=== PATIENT | male | born 1955 | race Caucasian/White ===

== ENCOUNTER 2017-02-06 12:34 | Emergency (ER) | payer MEDICARE, MEDICAID ==
[2017-02-06] MEDS ORDERED: POTASSIUM CHLORIDE 10 MEQ TABLET.SA PO ONE (19:50)
[2017-02-06] MEDS ORDERED: POTASSI CL 20 MEQ/50 ML RIDER 40 MEQ/100 ML RTUPB IV ONE (19:51)
--- NOTE | 2017-02-06 20:23 | ER Document Report ---
ED General - General Chief Complaint: Nausea/Vomiting/Diarrhea Time Seen by Provider: 02/06/17 20:22 Notes: Patient is a 61-year-old male who comes emergency department for chief complaint of 3 days of vomiting, diarrhea, and reduced appetite. He states that the first day he had vomiting for several hours but this resolved, the next 2 days he had diarrhea. He states that this evening symptoms started to reduce but he states that he feels weak, he states he feels fatigued and out of breath when he walks around. Patient denies any fever, denies any symptoms while lying down. He denies syncope. Past medical history of hypertension, states he stopped taking medication some time ago but his blood pressure is always high. Patient states he feels hungry. TRAVEL OUTSIDE OF THE [place] IN LAST 30 DAYS: No - Related Data Allergies/Adverse Reactions: codeine [Codeine] Allergy (Verified 04/25/16 11:23) Penicillins Allergy (Verified 04/25/16 11:23) Past Medical History - General Information source: Patient - Social History Smoking Status: Former Smoker Frequency of alcohol use: Occasional Drug Abuse: None Lives with: Alone Family History: Reviewed & Not Pertinent - Past Medical History Cardiac Medical History: Reports: Hx Hypertension Pulmonary Medical History: Denies: Hx Tuberculosis Neurological Medical History: Denies: Hx Seizures Past Surgical History: Reports: Hx Orthopedic Surgery - knee, left hip - Immunizations Hx Diphtheria, Pertussis, Tetanus Vaccination: No Review of Systems - Review of Systems Constitutional: See HPI EENT: No symptoms reported Cardiovascular: See HPI Respiratory: See HPI Gastrointestinal: See HPI Genitourinary: No symptoms reported Male Genitourinary: No symptoms reported Musculoskeletal: No symptoms reported Skin: No symptoms reported Hematologic/Lymphatic: No symptoms reported Neurological/Psychological: No symptoms reported Physical Exam - Vital signs Vitals: Pulse Resp BP Pulse Ox 82 16 149/121 H 100 02/06/17 21:19 02/06/17 21:19 02/06/17 21:19 02/06/17 21:19 Interpretation: Normal - General General appearance: Appears well, Alert In distress: None - Patient alert and generally well-appearing although he appears somewhat weathered - HEENT Head: Normocephalic, Atraumatic Eyes: Normal Conjunctiva: Normal Extraocular movements intact: Yes Eyelashes: Normal Pupils: PERRL Sinus: Normal Nasal: Normal Mouth/Lips: Normal Mucous membranes: Dry - Dry tongue, lips, mucous membranes Pharynx: Normal Neck: Normal - Respiratory Respiratory status: No respiratory distress Chest status: Nontender Breath sounds: Normal Chest palpation: Normal - Cardiovascular Rhythm: Regular. No: Tachycardia Heart sounds: Normal auscultation, S1 appreciated, S2 appreciated Murmur: No - Abdominal Inspection: Normal Distension: No distension Bowel sounds: Normal Tenderness: Tender - Generalized abdominal tenderness, nonspecific, no rebound tenderness or guarding Organomegaly: No organomegaly - Back Back: Normal, Nontender. No: Tender - Extremities General upper extremity: Normal inspection, Nontender, Normal color, Normal ROM , Normal temperature General lower extremity: Normal inspection, Nontender, Normal color, Normal ROM , Normal temperature, Normal weight bearing. No: Ida's sign - Neurological Neuro grossly intact: Yes Cognition: Normal Orientation: AAOx4 [place] Coma Scale Eye Opening: Spontaneous [place] Coma Scale Verbal: Oriented [place] Coma Scale Motor: Obeys Commands Sonia Coma Scale Total: 15 Speech: Normal Motor strength normal: LUE, RUE, LLE, RLE Sensory: Normal - Psychological Associated symptoms: Normal affect, Normal mood - Skin Skin Temperature: Warm Skin Moisture: Dry Skin Color: Normal Course - Re-evaluation Re-evalutation: Patient generally well-appearing on exam. No leukocytosis, no fever, no significant tenderness on abdominal exam. Hypokalemia and 2.7, likely from the vomiting and diarrhea. Patient clinically also appears dehydrated. We will hydrate, replace potassium, reevaluate. Initial laboratory results delayed because of downtime with the system, attempted to redraw and trend troponins and this was also delayed but resulted and is unchanged. Some of laboratory results also on paper form only. Troponin is patient's baseline. No evidence of ACS on evaluation otherwise. Low suspicion of ACS or any pulmonary abnormality. Laboratory values again delayed trying to evaluate magnesium, eventually this was also obtained and shown to be only slightly low. Attempting to recheck potassium but discontinued hemolyze. After treatment patient smiling, states he feels much better, states his symptoms are completely gone he wants to go home. Chemistry finally resulted and shows that potassium has normalized, patient asking to go home, he does agree to follow-up with family care referral, after discussion patient will also be given hypertension medications, I discussed return precautions in depth, patient states understanding and agreement. - Vital Signs Vital signs: Temp Pulse Resp BP Pulse Ox 82 16 149/121 H 100 02/06/17 21:19 02/06/17 21:19 02/06/17 21:19 02/06/17 21:19 - Laboratory Result Diagrams: 02/06/17 16:10 02/07/17 05:36 Laboratory results interpreted by me: 02/07/17 02/07/17 02:20 05:36 Sodium 132.7 L BUN 23 H Calcium 8.2 L Urine Urobilinogen 4.0 H Discharge - Discharge Clinical Impression: Nausea vomiting and diarrhea, Hypokalemia, Uncontrolled hypertension Condition: Stable Disposition: HOME, SELF-CARE Additional Instructions: You have been treated for the electrolyte normality is caused by your vomiting and diarrhea. Based on the workup I suspect you had a viral syndrome. Begin lisinopril for uncontrolled blood pressure. Take Phenergan if needed for nausea or upset stomach. Follow-up with the referral to the clinic for reevaluation and management. Return to emergency department for any concerning or worsening symptoms Prescriptions: Lisinopril 20 mg PO DAILY #60 tablet Promethazine HCl [Phenergan 25 mg Tablet] 1 - 2 tab PO Q6H PRN #15 tablet PRN Reason: Referrals: [facility] [Provider Group] - 02/11/17
[2017-02-06 21:24] VITALS: BP 149/121
[2017-02-07] MEDS ORDERED: NORMAL SALINE 1000 ML 500 ML IV ONE (00:47)
[2017-02-07 02:55] LABS: APPEARANCE,URINE CLEAR; BILIRUBIN,URINE NEGATIVE (NEGATIVE); GLUCOSE, URINE NEGATIVE (NEGATIVE); KETONES,URINE NEGATIVE (NEGATIVE); LEUKOCYTE ESTERASE,URINE NEGATIVE (NEGATIVE); NITRITE,URINE NEGATIVE (NEGATIVE); PROTEIN,URINE NEGATIVE (NEGATIVE)
[2017-02-07 06:06] LABS: ANION GAP 7 (5-19); BLOOD UREA NITROGEN 23 mg/dL (7-20); CALCIUM 8.2 mg/dL (8.4-10.2); CARBON DIOXIDE 26 mmol/L (22-30); CHLORIDE 100 mmol/L (98-107); CREATININE RESULT 1.15 mg/dL (0.52-1.25); GLUCOSE 84 mg/dL (75-110); POTASSIUM 4.3 mmol/L (3.6-5.0); SODIUM 132.7 mmol/L (137-145)
[2017-02-07 10:31] LABS: HEMATOCRIT 38.5 % (37.9-51.0); HEMOGLOBIN 13.2 g/dL (13.5-17.0); HGB HCT DIFFERENCE 1.1; MEAN CORPUSCULAR HEMOGLOBIN 40.4 pg (27.0-33.4); MEAN CORPUSCULAR HGB CONC 34.3 g/dL (32.0-36.0); RED BLOOD COUNT 3.27 10^6/uL (4.35-5.55); RED CELL DISTRIBUTION WIDTH 16.3 % (11.5-14.0); WHITE BLOOD COUNT 3.8 10^3/uL (4.0-10.5)
[2017-02-07 10:32] LABS: MEAN CORPUSCULAR VOLUME 118 fl (80-97)
[2017-02-07 10:33] LABS: ANISOCYTOSIS 1+; BASOPHILS % (MANUAL) 0 % (0-2); EOSINOPHILS % (MANUAL) 1 % (0-6); LYMPHOCYTES % (MANUAL) 33 % (13-45); OVALOCYTES SLIGHT; POIKILOCYTOSIS SLIGHT; TEAR DROP CELLS SLIGHT; TOTAL CELLS COUNTED 100
--- NOTE | 2017-02-07 10:39 | EKG REPORT ---
SEVERITY:- ABNORMAL ECG - SINUS RHYTHM VENTRICULAR PREMATURE COMPLEX PROBABLE LEFT ATRIAL ABNORMALITY PROBABLE INFERIOR INFARCT, OLD : Confirmed by: Eusebia Cooper MD 07-Feb-2017 10:38:54
--- NOTE | 2017-02-07 10:39 | EKG REPORT ---
SEVERITY:- ABNORMAL ECG - SINUS RHYTHM VENTRICULAR PREMATURE COMPLEX PROBABLE INFERIOR INFARCT, OLD BORDERLINE PROLONGED QT INTERVAL : Confirmed by: Eusebia Cooper MD 07-Feb-2017 10:38:49
[2017-02-08 15:48] LABS: MAGNESIUM 1.4 mg/dL (1.6-2.3)
[2017-02-08 15:50] LABS: BLOOD UREA NITROGEN 24 mg/dL (7-20); CALCIUM 9.1 mg/dL (8.4-10.2); CREATININE RESULT 1.42 mg/dL (0.52-1.25); GLUCOSE 103 mg/dL (75-110)
[2017-02-08 15:51] LABS: CARBON DIOXIDE 29 mmol/L (22-30); CHLORIDE 93 mmol/L (98-107); POTASSIUM 2.7 mmol/L (3.6-5.0)
[2017-02-08 15:52] LABS: ALANINE AMINOTRANSFERASE 60 U/L (21-72); ALBUMIN 3.6 g/dL (3.5-5.0); ALKALINE PHOSPHATASE 111 U/L (38-126); ANION GAP 12 (5-19); ASPARTATE AMINO TRANSFERASE 158 U/L (17-59); BILIRUBIN,DIRECT 0.8 mg/dL (0.0-0.4); BILIRUBIN,TOTAL 2.1 mg/dL (0.2-1.3); SODIUM 133.8 mmol/L (137-145); TOTAL PROTEIN 6.7 g/dL (6.3-8.2)
[2017-02-08 15:54] LABS: CREATINE KINASE MB 1.86 ng/mL (<4.55); TROPONIN I 0.054 ng/mL
[2017-02-08 19:57] LABS: PATH REVIEW PATHOLOGIST REVIEWED
[2017-02-08 23:46] LABS: CREATINE KINASE 80 U/L (55-170); LIPASE 149.2 U/L (23-300)
== END 2017-02-06 20:25 | disposition other institution (70) ==
LOC: ER 12:34
DX: R11.2 Nausea with vomiting, unspecified (principal); R19.7 Diarrhea, unspecified; E87.6 Hypokalemia; I10 Essential (primary) hypertension; R53.1 Weakness; R53.83 Other fatigue; Z87.891 Personal history of nicotine dependence; Z88.6 Allergy status to analgesic agent; Z88.0 Allergy status to penicillin
CPT/HCPCS: 93005; 99285; 36415; 82553; 82550; 83690; 83735; 85025; 80048; 80053; 81001; 84484; 71020; 93010; J3480; A9270

== ENCOUNTER 2017-05-09 08:46 | Emergency (ER) | payer MEDICARE, MEDICAID ==
--- NOTE | 2017-05-09 09:45 | ER Document Report ---
ED General - General Mode of Arrival: Ambulatory Information source: Patient TRAVEL OUTSIDE OF THE [place] IN LAST 30 DAYS: No - HPI Onset: This morning Associated symptoms: Other - see above <ZANDRA DILL - Last Filed: 05/09/17 09:40> <LOY FELIX - Last Filed: 05/09/17 11:46> - General Chief Complaint: Low Blood Sugar Stated Complaint: FALL/DIZZY Time Seen by Provider: 05/09/17 09:05 Notes: Patient is a 61 year old male who presents to the ED with complaints of 3 separate falls. Patient states last night at approximately 1700 last night he fell after eating pizza. He fell a second time at 1900. Today he was going to [employer] to get bandaid and stepped up onto a curb falling a 3rd time. Patient states his right knee gave out during all of his falls but he denies any pain. Patient denies feeling dizzy or lightheaded. He has skin tears to his right and left elbow area and his left lower leg. Patient fell back in January 2016 causing a fractured hip. (ZANDRA DILL) - Related Data Allergies/Adverse Reactions: codeine [Codeine] Allergy (Verified 05/09/17 09:02) Penicillins Allergy (Verified 05/09/17 09:02) Past Medical History - General Information source: Patient - Social History Smoking Status: Current Every Day Smoker Frequency of alcohol use: Heavy Drug Abuse: None Family History: Reviewed & Not Pertinent - Past Medical History Cardiac Medical History: Reports: Hx Hypertension Pulmonary Medical History: Denies: Hx Tuberculosis Neurological Medical History: Denies: Hx Seizures Renal/ Medical History: Denies: Hx Peritoneal Dialysis Past Surgical History: Reports: Hx Orthopedic Surgery - knee, left hip - Immunizations Hx Diphtheria, Pertussis, Tetanus Vaccination: No <ZANDRA DILL - Last Filed: 05/09/17 09:40> Review of Systems - Review of Systems Constitutional: No symptoms reported EENT: No symptoms reported Cardiovascular: See HPI. denies: Dizziness, Lightheaded Respiratory: No symptoms reported Gastrointestinal: No symptoms reported Genitourinary: No symptoms reported Male Genitourinary: No symptoms reported Musculoskeletal: No symptoms reported Skin: See HPI, Other - skin tears Hematologic/Lymphatic: No symptoms reported Neurological/Psychological: No symptoms reported <ZANDRA DILL - Last Filed: 05/09/17 09:40> Physical Exam - General General appearance: Alert, Other - ETOH on breath, cachectic In distress: None - HEENT Head: Normocephalic, Atraumatic Eyes: Normal Extraocular movements intact: Yes Pupils: PERRL Mouth/Lips: Other - ETOH smell on breath - Respiratory Respiratory status: No respiratory distress Breath sounds: Rhonchi - Cardiovascular Rhythm: Regular Heart sounds: Normal auscultation Murmur: No - Abdominal Distension: No distension - Back Back: Normal - Extremities General upper extremity: Normal ROM, Other - see skin exam General lower extremity: Normal ROM, Normal temperature - skin is warm into feet , Other - see skin exam. No: Tender - to right leg - Neurological Neuro grossly intact: Yes - Psychological Associated symptoms: Normal affect, Normal mood - Skin Skin Temperature: Warm Skin Moisture: Dry Skin Color: Normal Skin irregularity: other - superficial skin tears where skin is missing on left elbow and posterior distal upper arm on the left, superficial skin tears where skin is missing on right elbow, skin tore off on left lateral leg <ZANDRA DILL - Last Filed: 05/09/17 09:40> - Vital signs Vitals: Pulse Resp BP Pulse Ox 74 20 169/97 H 100 05/09/17 08:53 05/09/17 08:53 05/09/17 08:53 05/09/17 08:53 Course <ZANDRA DILL - Last Filed: 05/09/17 09:40> - Laboratory Result Diagrams: 05/09/17 09:45 05/09/17 09:45 <LYO FELIX - Last Filed: 05/09/17 11:46> - Re-evaluation Re-evalutation: 05/09/17 11:13 The patient told the nurse he wanted to leave and did not want any further treatment. I went to see him and he is on his cell phone trying to find someone to come getting. He tells me he had someone get his car from the [employer] and taken back home because his dog was in the car. I explained to him that his low potassium and low sugar should probably be treated. When he wanted to know was low sugar the reason he fell, I informed him that his alcohol level was over 260 and he was extremely intoxicated and that is probably why he fell. He was argue the point stating he had one drink this morning and was not drunk. I told him he should have been picked up by the police and put in senior living and left there because he is a recalcitrant alcoholic putting the public at risk from his negligent behavior driving. He continued to protest claiming he had only had one drink. Due to Federal HIPPA laws, I do not think I can legally report this patient and the information that is protected by law pertaining to his behavior. I have attempted to get clarification of this in the past from workers compensation paralegal and have never been confidently assured that it is legal to report the patient like this. (LOY FELIX) - Vital Signs Vital signs: Temp Pulse Resp BP Pulse Ox 74 15 145/86 H 100 05/09/17 08:53 05/09/17 11:01 05/09/17 11:00 05/09/17 08:53 - Laboratory Laboratory results interpreted by me: 05/09/17 05/09/17 05/09/17 08:51 09:45 09:45 RBC 3.35 L Hgb 13.4 L MCV 115 H MCH 40.0 H RDW 18.4 H Plt Count 72 L Potassium 3.0 L* POC Glucose 131 H Direct Bilirubin 0.5 H AST 65 H Albumin 3.3 L Discharge <ZANDRA DILL - Last Filed: 05/09/17 09:40> <LOY FELIX - Last Filed: 05/09/17 11:46> - Discharge Clinical Impression: Frequent falls, Continuous chronic alcoholism, Hypokalemia Alcohol intoxication Qualifiers: Complication of substance-induced condition: uncomplicated Qualified Code(s): F10.920 - Alcohol use, unspecified with intoxication, uncomplicated Condition: Stable Disposition: AGAINST MEDICAL ADVICE Scribe Attestation: 05/09/17 11:46 I personally performed the services described in the documentation, reviewed and edited the documentation which was dictated to the scribe in my presence, and it accurately records my words and actions. (LOY FELIX) Scribe Documentation - Scribe Written by Scribe:: elkin Sibley, 05/09/2017, 0946 acting as scribe for :: Hayley <ZANDRA DILL - Last Filed: 05/09/17 09:40>
[2017-05-09 10:14] LABS: HEMATOCRIT 38.5 % (37.9-51.0); HEMOGLOBIN 13.4 g/dL (13.5-17.0); HGB HCT DIFFERENCE 1.7; MEAN CORPUSCULAR HGB CONC 34.7 g/dL (32.0-36.0); MEAN CORPUSCULAR VOLUME 115 fl (80-97); RED BLOOD COUNT 3.35 10^6/uL (4.35-5.55); RED CELL DISTRIBUTION WIDTH 18.4 % (11.5-14.0)
[2017-05-09 10:40] LABS: ALANINE AMINOTRANSFERASE 30 U/L (21-72); ALBUMIN 3.3 g/dL (3.5-5.0); ALCOHOL 264 mg/dL (NONE DETECTED); ALKALINE PHOSPHATASE 90 U/L (38-126); ANION GAP 10 (5-19); ASPARTATE AMINO TRANSFERASE 65 U/L (17-59); BASOPHILS % (MANUAL) 0 % (0-2); BILIRUBIN,DIRECT 0.5 mg/dL (0.0-0.4); BILIRUBIN,TOTAL 0.7 mg/dL (0.2-1.3); BLOOD UREA NITROGEN 8 mg/dL (7-20); CALCIUM 8.9 mg/dL (8.4-10.2); CARBON DIOXIDE 28 mmol/L (22-30); CHLORIDE 101 mmol/L (98-107); CREATININE RESULT 1.08 mg/dL (0.52-1.25); EOSINOPHILS % (MANUAL) 3 % (0-6); GLUCOSE 83 mg/dL (75-110); LYMPHOCYTES % (MANUAL) 32 % (13-45); MAGNESIUM 1.8 mg/dL (1.6-2.3); SODIUM 139.2 mmol/L (137-145); TOTAL CELLS COUNTED 100; TOTAL PROTEIN 6.5 g/dL (6.3-8.2)
[2017-05-09 10:44] LABS: TOXIC GRANULATION SLIGHT
[2017-05-09] MEDS ORDERED: DEXTROSE 5%-LACTATED RINGERS 1,000 ML IV ONE (11:04)
[2017-05-09] MEDS ORDERED: THIAMINE HCL INJ 200 MG/2 ML VIAL IV ONE (11:04)
[2017-05-09] MEDS ORDERED: POTASSIUM CHLORIDE 20 MEQ/15 ML UDCUP PO ONE (11:04)
[2017-05-09 11:17] VITALS: BP 145/86
== END 2017-05-09 11:17 | disposition left against medical advice (07) ==
LOC: ER 08:46
DX: F10.229 Alcohol dependence with intoxication, unspecified (principal); Y90.8 Blood alcohol level of 240 mg/100 ml or more; S51.012A Laceration without foreign body of left elbow, initial encounter; S51.011A Laceration without foreign body of right elbow, initial encounter; S81.812A Laceration without foreign body, left lower leg, initial encounter; W19.XXXA Unspecified fall, initial encounter; E87.6 Hypokalemia; R29.6 Repeated falls; Z87.81 Personal history of (healed) traumatic fracture; Z88.5 Allergy status to narcotic agent; Z88.0 Allergy status to penicillin; F17.200 Nicotine dependence, unspecified, uncomplicated
CPT/HCPCS: 36415; 80053; 80307; 82962; 83735; 85025; 99284

== ENCOUNTER 2018-04-03 14:15 | Emergency (ER) | payer MEDICARE, MEDICAID ==
[2018-04-03 14:23] VITALS: BP 110/83
[2018-04-03] MEDS ORDERED: NORMAL SALINE 1000 ML 1,000 ML IV ONE (15:03)
--- NOTE | 2018-04-03 15:07 | ER Document Report ---
ED General - General Chief Complaint: Weakness Stated Complaint: WEAKNESS IN LEGS Time Seen by Provider: 04/03/18 14:54 Mode of Arrival: Ambulatory Information source: Patient Notes: 62-year-old male presents emergency department with complaints of his right lower extremity giving out on him. Patient states that after he used the bathroom today he went to stand up and his right lower extremity gave out. He did fall. He denies any head injury or loss of consciousness. Patient states that he was having a difficult time getting up afterwards. One of his neighbors came by and assisted him. Patient was told to go to the emergency department for an evaluation. Patient has no complaints at this time. He denies any chest pain, shortness of breath, abdominal pain, nausea, vomiting, diarrhea, constipation, numbness, tingling, weakness. Patient states that he is able to ambulate. He denies any lower extremity pain. TRAVEL OUTSIDE OF THE [place] IN LAST 30 DAYS: No - HPI Onset: Just prior to arrival Onset/Duration: Sudden Quality of pain: No pain Severity: None Pain Level: Denies Associated symptoms: None Exacerbated by: Denies Relieved by: Denies Similar symptoms previously: Yes Recently seen / treated by doctor: No - Related Data Allergies/Adverse Reactions: codeine [Codeine] Allergy (Verified 04/03/18 15:05) Penicillins Allergy (Verified 04/03/18 15:05) Past Medical History - General Information source: Patient - Social History Smoking Status: Current Every Day Smoker Chew tobacco use (# tins/day): No Frequency of alcohol use: Heavy Drug Abuse: None Family History: Reviewed & Not Pertinent Patient has suicidal ideation: No Patient has homicidal ideation: No - Past Medical History Cardiac Medical History: Reports: Hx Hypertension Pulmonary Medical History: Denies: Hx Tuberculosis Neurological Medical History: Denies: Hx Seizures Renal/ Medical History: Denies: Hx Peritoneal Dialysis Past Surgical History: Reports: Hx Abdominal Surgery - hernia, Hx Orthopedic Surgery - knee, left hip - Immunizations Hx Diphtheria, Pertussis, Tetanus Vaccination: No Review of Systems - Review of Systems Constitutional: No symptoms reported EENT: No symptoms reported Cardiovascular: No symptoms reported Respiratory: No symptoms reported Gastrointestinal: No symptoms reported Genitourinary: No symptoms reported Male Genitourinary: No symptoms reported Skin: No symptoms reported Hematologic/Lymphatic: No symptoms reported Neurological/Psychological: No symptoms reported -: Yes All other systems reviewed and negative Physical Exam - Vital signs Vitals: Temp Pulse Resp BP Pulse Ox 98.4 F 96 18 110/83 94 04/03/18 14:21 04/03/18 14:21 04/03/18 14:21 04/03/18 14:21 04/03/18 14:21 Interpretation: Normal - Notes Notes: PHYSICAL EXAMINATION: GENERAL: Well-appearing, well-nourished and in no acute distress. HEAD: Atraumatic, normocephalic. EYES: Pupils equal round and reactive to light, extraocular movements intact, sclera anicteric, conjunctiva are normal. ENT: Nares patent, oropharynx clear without exudates. Moist mucous membranes. NECK: Normal range of motion, supple without lymphadenopathy LUNGS: Breath sounds clear to auscultation bilaterally and equal. No wheezes rales or rhonchi. HEART: Regular rate and rhythm without murmurs ABDOMEN: Soft, nontender, nondistended abdomen. No guarding, no rebound. No masses appreciated. Musculoskeletal: Normal range of motion, no pitting or edema. No cyanosis. NEUROLOGICAL: Cranial nerves grossly intact. Normal speech, normal gait. Normal sensory, motor exams PSYCH: Normal mood, normal affect. SKIN: Warm, Dry, normal turgor, no rashes or lesions noted. Course - Re-evaluation Re-evalutation: 04/03/18 15:21 Labs ordered. Patient wants to leave AGAINST MEDICAL ADVICE. Patient understands the risks of leaving AGAINST MEDICAL ADVICE. He is mentally competent to make decisions. - Vital Signs Vital signs: Temp Pulse Resp BP Pulse Ox 98.4 F 96 18 110/83 94 04/03/18 14:21 04/03/18 14:21 04/03/18 14:21 04/03/18 14:21 04/03/18 14:21 Discharge - Discharge Clinical Impression: Weakness Condition: Stable Disposition: AGAINST MEDICAL ADVICE
== END 2018-04-03 15:28 | disposition left against medical advice (07) ==
LOC: ER 14:15
DX: R53.1 Weakness (principal); I10 Essential (primary) hypertension; F17.200 Nicotine dependence, unspecified, uncomplicated; Z88.0 Allergy status to penicillin; Z88.5 Allergy status to narcotic agent; Z53.20 Procedure and treatment not carried out because of patient's decision for unspecified reasons
CPT/HCPCS: 99285

== ENCOUNTER 2019-03-13 21:35 | Emergency (ER) | payer MEDICARE, MEDICAID ==
[2019-03-13] MEDS ORDERED: ONDANSETRON HCL INJ/PF 4 MG/2 ML SDV IV ONE (22:13)
--- NOTE | 2019-03-13 22:38 | ER Document Report ---
ED General - General Chief Complaint: Fall Stated Complaint: HIP PAIN Time Seen by Provider: 03/13/19 21:52 Cannot obtain history due to: Intoxicated Notes: Patient is a 63-year-old male with a past medical history of chronic alcohol abuse, chronic malnutrition, presents by EMS with right lower extremity pain. Patient reports that he was walking through his house, his right leg gave out and he abruptly sat down on the couch scraping his arm on the side of the chair. The patient adamantly denies a fall although EMS does report that the patient was found on the ground. The patient is reporting a severe, throbbing, constant pain to his right hip. Pain was abrupt in onset and has been constant since that time. Any attempt at moving the hip worsens the pain. Nothing improves the pain. States that he has history of a left hip fracture but has never had an injury to the right hip in the past. Denies any injury to any other location. TRAVEL OUTSIDE OF THE [place] IN LAST 30 DAYS: No - Related Data Allergies/Adverse Reactions: codeine [Codeine] Allergy (Verified 04/03/18 15:05) Penicillins Allergy (Verified 04/03/18 15:05) Past Medical History - General Information source: Patient - Social History Smoking Status: Current Every Day Smoker Frequency of alcohol use: Heavy Drug Abuse: None Lives with: Alone Family History: Reviewed & Not Pertinent - Past Medical History Cardiac Medical History: Reports: Hx Hypertension Pulmonary Medical History: Denies: Hx Tuberculosis Neurological Medical History: Denies: Hx Seizures Renal/ Medical History: Denies: Hx Peritoneal Dialysis Past Surgical History: Reports: Hx Abdominal Surgery - hernia, Hx Orthopedic Surgery - knee, left hip - Immunizations Hx Diphtheria, Pertussis, Tetanus Vaccination: No Review of Systems - Review of Systems Notes: Constitutional: Negative for fever. HENT: Negative for sore throat. Eyes: Negative for visual changes. Cardiovascular: Negative for chest pain. Respiratory: Negative for shortness of breath. Gastrointestinal: Positive for nausea Genitourinary: Negative for dysuria. Musculoskeletal: Positive for right hip pain Skin: Negative for rash. Neurological: Negative for headaches, weakness or numbness. 10 point ROS negative except as marked above and in HPI. Physical Exam - Vital signs Vitals: Resp Pulse Ox 13 99 03/13/19 21:41 03/13/19 21:41 Interpretation: Normal Notes: PHYSICAL EXAMINATION: GENERAL: Frail, emaciated man who appears older than stated age HEAD: Atraumatic, normocephalic. EYES: Pupils equal round and reactive to light, extraocular movements intact, sclera anicteric, conjunctiva are normal. ENT: nares patent, oropharynx clear without exudates. Moderately dry mucous membranes. NECK: Normal range of motion, supple without lymphadenopathy LUNGS: Breath sounds clear to auscultation bilaterally and equal. No wheezes rales or rhonchi. HEART: Regular rate and rhythm without murmurs ABDOMEN: Soft, nontender, normoactive bowel sounds. No guarding, no rebound. No masses appreciated. EXTREMITIES: Unable to range right hip. Exquisite pain on palpation of the area. No other areas of extremity findings. NEUROLOGICAL: No focal neurological deficits. PSYCH: Mildly intoxicated SKIN: Warm, Dry, normal turgor, scattered skin avulsions over the right forearm Course - Re-evaluation Re-evalutation: 03/13/19 22:37 Patient presents with acute onset of right hip pain. Patient states that he was walking, his legs simply gave out on him and he fell back into a chair. He is clear to state me that he did not fall onto the ground although EMS states that he was found down on the ground. Patient is a chronic alcoholic, has a history of left hip fracture in the past status post repair. His right hip does have diffuse swelling and obvious pain on palpation. X-ray does show a proximal femur fracture. Pain control will be provided. Patient also has skin abrasions over his right forearm although declined x-rays of the forearm and elbow. He did not hit his head or neck tonight. Labs are pending. He will require hospitalization for surgical fixation. 03/14/19 01:47 Unfortunately do not have orthopedic surgery senior formulation scientist. Patient has been accepted by Dr. Celestin the hospitalist on-call at [facility]. Patient's labs do not demonstrate findings consistent with macrocytic anemia likely secondary to alcohol consumption. Thiamine and folate have been initiated. Maintenance fluids have been initiated. Patient understands that he will require transfer. - Vital Signs Vital signs: Temp Pulse Resp BP Pulse Ox 97.6 F 11 L 127/96 H 98 03/13/19 22:13 03/14/19 01:00 03/13/19 22:00 03/14/19 01:00 - Laboratory Result Diagrams: 03/13/19 23:05 03/13/19 23:05 Laboratory results interpreted by me: 03/13/19 03/13/19 23:05 23:05 RBC 2.59 L Hgb 10.0 L Hct 28.4 L MCV 110 H MCH 38.4 H RDW 16.1 H Plt Count 79 L Sodium 136.2 L Potassium 3.3 L Creatinine 1.36 H Est GFR (Non-Af Amer) 53 L Calcium 8.2 L Total Protein 6.0 L Albumin 3.0 L - Diagnostic Test Radiology reviewed: Image reviewed, Reports reviewed Radiology results interpreted by me: 03/14/19 01:48 Right hip x-ray: Intertrochanteric fracture on right Discharge - Discharge Clinical Impression: Renal insufficiency, Alcohol abuse, Skin tear of right upper extremity, Macrocytic anemia Fracture, intertrochanteric, right femur Qualifiers: Encounter type: initial encounter Fracture type: closed Fracture alignment: nondisplaced Qualified Code(s): S72.144A - Nondisplaced intertrochanteric fracture of right femur, initial encounter for closed fracture Malnutrition Qualifiers: Malnutrition type: unspecified type Qualified Code(s): E46 - Unspecified protein-calorie malnutrition Condition: Fair Disposition: [facility]ICAL ACCESS HOSPITAL
--- NOTE | 2019-03-13 22:42 | RADIOLOGY REPORT (SQ) ---
EXAM DESCRIPTION: XR CHEST 1 VIEW COMPLETED DATE/TME: 03/13/2019 00:00 CLINICAL HISTORY: 63 years, Male, PRE OP COMPARISON: Multiple priors, most recent from 01/24/2016 NUMBER OF VIEWS: One TECHNIQUE: Single frontal view of the chest was obtained LIMITATIONS: None. FINDINGS: Cardiac and mediastinal contours are stable. Patchy right apical opacity is noted along with right apical cap. Left lung is overall clear. No pleural effusion or pneumothorax. Multiple old healed left-sided rib fracture deformities are noted. Focal nodular opacity projecting over the left posterior fifth rib likely indicates artifact related to the first costochondral junction. IMPRESSION: Patchy right apical opacity with right apical cap. Consider atelectasis or pneumonia to include aspiration. The right apical cap could indicate scarring. Recommend short interval follow-up to clearing (4-6 weeks). If this finding persists, then further assessment with CT would be recommended. copyright 2010 [employer]- All Rights Reserved
[2019-03-13] MEDS: MORPHINE SULFATE 10 MG/ML INJ IV PRN (22:48)
--- NOTE | 2019-03-13 22:54 | RADIOLOGY REPORT (SQ) ---
EXAM DESCRIPTION: XR HIP 2 OR MORE VIEWS COMPLETED DATE/TME: 03/13/2019 21:52 CLINICAL HISTORY: 63 years Male, fall, pain COMPARISON: CT abdomen pelvis February 13, 2015 Findings: Comminuted intertrochanteric fracture of the right proximal femur with 1.0 cm anterior displacement and moderate medial angulation. Intramedullary sara fixation of the left proximal femur. Bony demineralization. Atherosclerotic vascular disease. IMPRESSION: Acute fracture of the right proximal femur.
[2019-03-13 23:24] LABS: ABSOLUTE BASOPHILS # (AUTO) 0.1 10^3/uL (0.0-0.2); ABSOLUTE LYMPHOCYTES (AUTO) 0.9 10^3/uL (0.5-4.7); ABSOLUTE MONOCYTES (AUTO) 0.4 10^3/uL (0.1-1.4); ABSOLUTE NEUT (AUTO) 3.4 10^3/uL (1.7-8.2); BASOPHILS % (AUTO) 1.1 % (0-2); EOSINOPHILS % (AUTO) 0.4 % (0-6); HEMATOCRIT 28.4 % (37.9-51.0); LYMPHOCYTES % (AUTO) 18.6 % (13-45); MEAN CORPUSCULAR HEMOGLOBIN 38.4 pg (27.0-33.4); MEAN CORPUSCULAR VOLUME 110 fl (80-97); MONOCYTES % (AUTO) 7.8 % (3-13); RED BLOOD COUNT 2.59 10^6/uL (4.35-5.55); RED CELL DISTRIBUTION WIDTH 16.1 % (11.5-14.0); SEGMENTED NEUTROPHILS % (AUTO) 72.1 % (42-78); TOTAL CELLS COUNTED % (AUTO) 100 %; WHITE BLOOD COUNT 4.8 10^3/uL (4.0-10.5)
[2019-03-13 23:41] LABS: ALANINE AMINOTRANSFERASE 25 U/L (21-72); ALKALINE PHOSPHATASE 85 U/L (38-126); ANION GAP 8 (5-19); ASPARTATE AMINO TRANSFERASE 35 U/L (17-59); BILIRUBIN,DIRECT 0.4 mg/dL (0.0-0.4); BILIRUBIN,TOTAL 0.7 mg/dL (0.2-1.3); BLOOD UREA NITROGEN 16 mg/dL (7-20); CALCIUM 8.2 mg/dL (8.4-10.2); CARBON DIOXIDE 22 mmol/L (22-30); CHLORIDE 106 mmol/L (98-107); GLUCOSE 93 mg/dL (75-110); POTASSIUM 3.3 mmol/L (3.6-5.0); SODIUM 136.2 mmol/L (137-145)
[2019-03-13 23:43] LABS: PLATELET COUNT 79 10^3/uL (150-450)
[2019-03-14] MEDS ORDERED: RINGERS SOLUTION,LACTATED 1,000 ML IV ONE (01:39)
[2019-03-14] MEDS: MORPHINE SULFATE 10 MG/ML INJ IV PRN ×5 (01:45→11:06)
[2019-03-14] MEDS ORDERED: THIAMINE HCL INJ 200 MG/2 ML VIAL ONE (02:03)
[2019-03-14] MEDS ORDERED: FOLIC ACID INJ 5 MG/1 ML 10 ML VIAL ONE (02:03)
[2019-03-14 02:07] LABS: ALCOHOL 174 mg/dL (NONE DETECTED)
[2019-03-14] MEDS: THIAMINE HCL 100 MG, FOLIC ACID 1 MG in NORMAL SALINE 250 ML IV SCH ×2 (02:36→10:05)
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
[2019-03-14] MEDS ORDERED: MORPHINE SULFATE 10 MG/ML INJ IV ONE (11:21)
[2019-03-14] MEDS ORDERED: FENTANYL CITRATE INJ/PF 100 MCG/2 ML AMPUL IV ONE (17:26)
[2019-03-14] MEDS ORDERED: NORMAL SALINE 1000 ML 1,000 ML IV ONE (17:27)
[2019-03-14] MEDS ORDERED: KETOROLAC TROMETHAMINE INJ/PF 30 MG/1 ML SDV IV ONE (19:26)
[2019-03-14 19:51] VITALS: BP 107/68
== END 2019-03-14 20:00 | disposition short-term general hospital (02) ==
LOC: ER 21:35
DX: S72.144A Nondisplaced intertrochanteric fracture of right femur, initial encounter for closed fracture (principal); S41.111A Laceration without foreign body of right upper arm, initial encounter; D53.9 Nutritional anemia, unspecified; E46 Unspecified protein-calorie malnutrition; N28.9 Disorder of kidney and ureter, unspecified; F10.10 Alcohol abuse, uncomplicated; M25.551 Pain in right hip; X58.XXXA Exposure to other specified factors, initial encounter; Y92.009 Unspecified place in unspecified non-institutional (private) residence as the place of occurrence of the external cause; F17.200 Nicotine dependence, unspecified, uncomplicated; I10 Essential (primary) hypertension
CPT/HCPCS: 99285; 96361; 96375; 96365; 96366; 36415; 80307; 85025; 80053; 71045; 73502; J3010; J3490; J1885; J2270 ×2; J3411; J2405; J7030; J7050; J7120

== ENCOUNTER 2019-12-09 20:14 | Observation (INO) | payer MEDICARE, MEDICAID ==
--- NOTE | 2019-12-09 20:30 | ER Document Report ---
ED General - General Stated Complaint: CHEST WALL PAIN Time Seen by Provider: 12/09/19 20:23 Primary Care Provider: NYDIA JAIME MD [NO LOCAL MD] - Follow up as needed Notes: 64-year-old male with history of debility COPD, hypertension and hypothyroidism presents with chest pain. Left-sided chest wall worse with breathing and palpation onset 3 days ago. Seen by primary care which diagnosed chest wall pain and was discharged but is now here because the pain got better. Denies shortness of breath cough fever or travel. Denies leg swelling. Takes atenolol no extra dosing. Does not seem to be on a thyroid medicine. Per EMS was bra [employer]. TRAVEL OUTSIDE OF THE [place] IN LAST 30 DAYS: No - Related Data Allergies/Adverse Reactions: codeine [Codeine] Allergy (Verified 04/03/18 15:05) Penicillins Allergy (Verified 04/03/18 15:05) Past Medical History - Social History Smoking Status: Current Every Day Smoker Smoking Education Provided: Yes - Smoking cessation certain smoking cessation Family History: Reviewed & Not Pertinent - Past Medical History Cardiac Medical History: Reports: Hx Hypertension Pulmonary Medical History: Denies: Hx Tuberculosis Neurological Medical History: Denies: Hx Seizures Renal/ Medical History: Denies: Hx Peritoneal Dialysis Past Surgical History: Reports: Hx Abdominal Surgery - hernia, Hx Orthopedic Surgery - knee, left hip - Immunizations Hx Diphtheria, Pertussis, Tetanus Vaccination: No Review of Systems - Review of Systems Notes: REVIEW OF SYSTEMS GEN: Denies fever, chills, weight loss ENT: Denies sore throat, nasal discharge, ear pain EYES: Denies blurry vision, eye pain, discharge CV: Chest pain RESP: Denies cough, shortness of breath, wheezing GI: Denies abdominal pain, nausea, vomiting, diarrhea MSK: Denies joint pain/swelling, edema, SKIN: Denies rash, skin lesions LYMPH: Denies swollen glands/lymph nodes NEURO: Denies headache, focal weakness or numbness, dizziness PSYCH: Denies depression, suicidal or homicidal ideation PHYSICAL EXAMINATION General: Quite thin and pale chronically ill-appearing Hed Head: Atraumatic, normocephalic ENT: Mouth normal, oropharynx moist, no exudates or tonsillar enlargement Eyes: Conjunctiva normal, pupils equal, lids normal Neck: No JVD, supple, no guarding CVS: Chest wall tenderness left side Resp: No resp distress, equal and normal breath sounds bilaterally GI: Nondistended, soft, no tenderness to palpation, no rebound or guarding Ext: No deformities, no edema, normal range of motion in upper and lower ext Back: No CVA or midline TTP Skin: No rash, warm Lymphatic: No lymphadeopathy noted Neuro: Awake, alert. Face symmetric. GCS 15. Physical Exam - Vital signs Vitals: Resp 13 12/09/19 20:24 Course - Re-evaluation Re-evalutation: 12/09/19 insert review Insert review 12/09/19 22:51 REVIEW OF SYSTEMS GEN: Denies fever, chills, weight loss ENT: Denies sore throat, nasal discharge, ear pain EYES: Denies blurry vision, eye pain, discharge CV: Chest pain RESP: Denies cough, shortness of breath, wheezing GI: Denies abdominal pain, nausea, vomiting, diarrhea MSK: Denies joint pain/swelling, edema, SKIN: Denies rash, skin lesions LYMPH: Denies swollen glands/lymph nodes NEURO: Denies headache, focal weakness or numbness, dizziness PSYCH: Denies depression, suicidal or homicidal ideation PHYSICAL EXAMINATION General: No acute distress, well-nourished Head: Atraumatic, normocephalic ENT: Mouth normal, oropharynx moist, no exudates or tonsillar enlargement Eyes: Conjunctiva normal, pupils equal, lids normal Neck: No JVD, supple, no guarding CVS: Normal rate, regular rhythm, no murmurs Resp: No resp distress, equal and normal breath sounds bilaterally, left chest tenderness GI: Nondistended, soft, no tenderness to palpation, no rebound or guarding Ext: No deformities, no edema, normal range of motion in upper and lower ext Back: No CVA or midline TTP Skin: No rash, warm Lymphatic: No lymphadeopathy noted Neuro: Awake, alert. Face symmetric. GCS 15. 12/09/19 22:52 Patient presents with chronic illness and reproducible chest pain which is likely unrelated to his bradycardia. Bradycardia seems relatively asymptomatic he did have a fall here today. He is in sinus bradycardia with first-degree block and is on a beta-idris. Will check electrolytes and placed on pacer just in case. Patient is well-perfused with borderline blood pressures which improved on their own with no intervention. Heart rate never dropped below 40 block did not increase repeat EKG was unchanged. His troponin is negative his potassium is slightly low. We will replete and admit for observation for potassium/telemetry off beta-idris. Do not think he needs an urgent pacemaker cardiology consultation. Discussed with Dr. Uribe who is admitted to [facility]. - Vital Signs Vital signs: Temp Pulse Resp BP Pulse Ox 15 114/72 99 12/09/19 22:01 12/09/19 22:01 12/09/19 22:01 - Laboratory Result Diagrams: 12/09/19 20:25 12/09/19 20:25 Laboratory results interpreted by me: 12/09/19 12/09/19 12/09/19 20:25 20:25 20:25 RBC 4.04 L MCV 105 H MCH 35.7 H RDW 14.4 H Plt Count 109 L Lymph % (Auto) 57.2 H Eos % (Auto) 6.4 H Baso % (Auto) 2.5 H Absolute Neuts (auto) 1.1 L Seg Neutrophils % 26.7 L Potassium 3.2 L TSH 4.85 H - EKG Interpretation by Me EKG shows normal: Sinus rhythm Rate: Bradycardia Heart block present: 1st Degree Critical Care Note - Critical Care Note Total time excluding time spent on procedures (mins): 31 Comments: The above patient is critically ill. Not including procedures, but including direct re-evaluations, speaking with patient and/or consultants, interpreting results, and documenting, I spent the total amount of minute listed listed above on critical care time Discharge - Discharge Clinical Impression: Bradycardia Condition: Fair Disposition: ADMITTED OBSERVATION Admitting Provider: Rony (Hospitalist) Unit Admitted: Telemetry Referrals: NYDIA JAIME MD [NO LOCAL MD] - Follow up as needed
[2019-12-09 20:48] LABS: ABSOLUTE BASOPHILS # (AUTO) 0.1 10^3/uL (0.0-0.2); ABSOLUTE EOSINOPHILS # (AUTO) 0.3 10^3/uL (0.0-0.6); ABSOLUTE LYMPHOCYTES (AUTO) 2.4 10^3/uL (0.5-4.7); ABSOLUTE MONOCYTES (AUTO) 0.3 10^3/uL (0.1-1.4); ABSOLUTE NEUT (AUTO) 1.1 10^3/uL (1.7-8.2); BASOPHILS % (AUTO) 2.5 % (0-2); EOSINOPHILS % (AUTO) 6.4 % (0-6); HEMATOCRIT 42.3 % (37.9-51.0); HEMOGLOBIN 14.4 g/dL (13.5-17.0); LYMPHOCYTES % (AUTO) 57.2 % (13-45); MEAN CORPUSCULAR HEMOGLOBIN 35.7 pg (27.0-33.4); MEAN CORPUSCULAR VOLUME 105 fl (80-97); MONOCYTES % (AUTO) 7.2 % (3-13); PLATELET COUNT 109 10^3/uL (150-450); RED BLOOD COUNT 4.04 10^6/uL (4.35-5.55); RED CELL DISTRIBUTION WIDTH 14.4 % (11.5-14.0); SEGMENTED NEUTROPHILS % (AUTO) 26.7 % (42-78); TOTAL CELLS COUNTED % (AUTO) 100 %; WHITE BLOOD COUNT 4.3 10^3/uL (4.0-10.5)
[2019-12-09 21:03] LABS: ANION GAP 7 (5-19); BLOOD UREA NITROGEN 11 mg/dL (7-20); CALCIUM 8.6 mg/dL (8.4-10.2); CARBON DIOXIDE 28 mmol/L (22-30); CHLORIDE 103 mmol/L (98-107); GLUCOSE 85 mg/dL (75-110); POTASSIUM 3.2 mmol/L (3.6-5.0)
[2019-12-09] MEDS: POTASSI CL 20 MEQ/50 ML RIDER 20 MEQ/50 ML RTUPB IV SCH (23:49)
[2019-12-10] MEDS ORDERED: MORPHINE SULFATE 10 MG/ML INJ IV PRN ×3 (00:25)
[2019-12-10] MEDS ORDERED: PROMETHAZINE HCL INJ 25 MG/1 ML VIAL IV PRN (00:25)
[2019-12-10] MEDS ORDERED: DIAZEPAM INJ 10 MG/2 ML DISP.SYRIN IV PRN (00:25)
[2019-12-10] MEDS ORDERED: GUAIFENESIN SYRP 200 MG/10 ML UDC PO PRN (00:25)
[2019-12-10] MEDS ORDERED: IBUPROFEN 800 MG TABLET PO PRN (00:25)
[2019-12-10] MEDS ORDERED: ACETAMINOPHEN 325 MG TABLET PO PRN (00:25)
[2019-12-10] MEDS ORDERED: MAGNESIUM HYDROXIDE SUSP 30 ML UDCUP PO PRN (00:25)
[2019-12-10] MEDS ORDERED: LEVALBUTEROL HCL NEB 0.63 MG/3 ML AMPUL NEB PRN (00:25)
[2019-12-10] MEDS ORDERED: NICOTINE 21 MG/24 HR PATCH.TD24 TD PRN (00:25)
[2019-12-10] MEDS ORDERED: CHLORPROMAZINE HCL INJ 25 MG/1 ML AMPULE IV PRN (00:25)
[2019-12-10] MEDS ORDERED: MAG HYDROX/AL HYDROX/SIMETH SUSP 30 ML UDCUP PO PRN (00:25)
[2019-12-10] MEDS: DIAZEPAM 5 MG TABLET PO SCH ×3 (02:18→09:40)
[2019-12-10] MEDS: POTASSI CL 20 MEQ/50 ML RIDER 20 MEQ/50 ML RTUPB IV SCH (02:18)
[2019-12-10 03:28] LABS: CHOLESTEROL 111.85 mg/dL (0-200); CREATINE KINASE 40 U/L (55-170); TRIGLYCERIDES 72 mg/dL (<150)
[2019-12-10 03:49] LABS: CREATINE KINASE MB 1.46 ng/mL (<4.55); TROPONIN I 0.03 ng/mL
[2019-12-10 03:53] LABS: DIRECT LDL 43 mg/dL (<100)
[2019-12-10] MEDS ORDERED: HEPARIN SOD (PORCINE) 5,000 UNIT/ML 1 ML VIAL SUBCUT SCH (06:00)
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
[2019-12-10] MEDS ORDERED: DOCUSATE SODIUM 100 MG CAPSULE PO SCH (10:00)
[2019-12-10 10:36] LABS: CREATINE KINASE MB 1.32 ng/mL (<4.55); TROPONIN I 0.017 ng/mL
[2019-12-10 12:05] VITALS: BP 151/88
--- NOTE | 2019-12-10 15:55 | EKG REPORT ---
SEVERITY:- ABNORMAL ECG - SINUS BRADYCARDIA INFERIOR INFARCT, OLD : Confirmed by: Eusebia Cooper MD 10-Dec-2019 15:54:40
== END 2019-12-10 12:43 | disposition home or self-care (01) ==
LOC: ER 20:14 → EH 23:23 → 4N 12-10 00:15
PROVIDERS: ADMIT Emergency Medicine; ATTEND Hospitalist
DX: R00.1 Bradycardia, unspecified (principal); E87.6 Hypokalemia; I11.0 Hypertensive heart disease with heart failure; I50.42 Chronic combined systolic (congestive) and diastolic (congestive) heart failure; F10.20 Alcohol dependence, uncomplicated; F17.200 Nicotine dependence, unspecified, uncomplicated; J44.9 Chronic obstructive pulmonary disease, unspecified; E03.9 Hypothyroidism, unspecified; E78.5 Hyperlipidemia, unspecified; I44.0 Atrioventricular block, first degree; I25.10 Atherosclerotic heart disease of native coronary artery without angina pectoris; Z86.718 Personal history of other venous thrombosis and embolism; Z87.81 Personal history of (healed) traumatic fracture; Z82.49 Family history of ischemic heart disease and other diseases of the circulatory system; Z79.899 Other long term (current) drug therapy
CPT/HCPCS: 93005; 99291; 96365; 36415; 82553; 82550; 83735; 84443 ×2; 85025; 80048; 84484 ×2; 84481; 80061; 93010; G0378; A9270 ×2; J3490; J3480 ×2

== ENCOUNTER 2020-03-12 20:16 | Inpatient (IN) | payer MEDICARE, MEDICAID ==
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
[2020-03-12 20:50] LABS: ABSOLUTE BASOPHILS # (AUTO) 0.1 10^3/uL (0.0-0.2); ABSOLUTE EOSINOPHILS # (AUTO) 0.2 10^3/uL (0.0-0.6); ABSOLUTE LYMPHOCYTES (AUTO) 2.5 10^3/uL (0.5-4.7); ABSOLUTE MONOCYTES (AUTO) 0.3 10^3/uL (0.1-1.4); ABSOLUTE NEUT (AUTO) 1.3 10^3/uL (1.7-8.2); BASOPHILS % (AUTO) 1.3 % (0-2); EOSINOPHILS % (AUTO) 4.2 % (0-6); HEMATOCRIT 41.5 % (37.9-51.0); HEMOGLOBIN 14.7 g/dL (13.5-17.0); LYMPHOCYTES % (AUTO) 58.4 % (13-45); MEAN CORPUSCULAR HEMOGLOBIN 37.8 pg (27.0-33.4); MEAN CORPUSCULAR HGB CONC 35.5 g/dL (32.0-36.0); MEAN CORPUSCULAR VOLUME 107 fl (80-97); RED CELL DISTRIBUTION WIDTH 14.5 % (11.5-14.0); SEGMENTED NEUTROPHILS % (AUTO) 29.1 % (42-78); TOTAL CELLS COUNTED % (AUTO) 100 %; WHITE BLOOD COUNT 4.3 10^3/uL (4.0-10.5)
[2020-03-12 21:02] LABS: PLATELET COUNT 57 10^3/uL (150-450)
[2020-03-12 21:16] LABS: ALBUMIN 4.1 g/dL (3.5-5.0); ALKALINE PHOSPHATASE 112 U/L (38-126); ANION GAP 13 (5-19); ASPARTATE AMINO TRANSFERASE 164 U/L (17-59); BILIRUBIN,DIRECT 0.3 mg/dL (0.0-0.4); BILIRUBIN,TOTAL 0.9 mg/dL (0.2-1.3); BLOOD UREA NITROGEN 12 mg/dL (7-20); CALCIUM 9.1 mg/dL (8.4-10.2); CARBON DIOXIDE 23 mmol/L (22-30); CHLORIDE 92 mmol/L (98-107); GLUCOSE 110 mg/dL (75-110); POTASSIUM 3.1 mmol/L (3.6-5.0); TOTAL PROTEIN 7.4 g/dL (6.3-8.2)
--- NOTE | 2020-03-12 21:18 | RADIOLOGY REPORT (SQ) ---
EXAM DESCRIPTION: XR PELVIS 1 VIEW COMPLETED DATE/TME: 03/12/2020 20:24 CLINICAL HISTORY: 64 years, Male, fall, leg pain COMPARISON: None. NUMBER OF VIEWS: TECHNIQUE: LIMITATIONS: None. FINDINGS: No acute fracture or dislocation. There are old bilateral hip fractures, with metallic fixation in place. IMPRESSION: No acute fracture or dislocation. copyright 2010 [employer]- All Rights Reserved
--- NOTE | 2020-03-12 21:21 | RADIOLOGY REPORT (SQ) ---
EXAM DESCRIPTION: XR FEMUR BILATERAL, 8 views COMPLETED DATE/TME: 03/12/2020 20:24 CLINICAL HISTORY: 64 years, Male, fall, leg pain COMPARISON: None. NUMBER OF VIEWS: TECHNIQUE: LIMITATIONS: None. FINDINGS: No acute fracture or dislocation. There are old fractures of the hips bilaterally, with metallic fixation in place. IMPRESSION: No acute fracture or dislocation. copyright 2010 [employer]- All Rights Reserved
[2020-03-12] MEDS ORDERED: NORMAL SALINE 500 ML IV ONE (21:53)
[2020-03-12] MEDS ORDERED: POTASSIUM CHLORIDE 10 MEQ TABLET.ER PO ONE (21:53)
[2020-03-12] MEDS ORDERED: POTASSI CL 20 MEQ/50 ML RIDER 20 MEQ/50 ML RTUPB IV ONE (21:54)
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
[2020-03-13] MEDS: MAGNESIUM SULFATE/D5W 1 GM/100 ML RTUPB IV SCH ×2 (00:58→02:05)
[2020-03-13 01:20] LABS: APPEARANCE,URINE CLEAR; BILIRUBIN,URINE NEGATIVE (NEGATIVE); COLOR,URINE YELLOW; GLUCOSE, URINE NEGATIVE (NEGATIVE); KETONES,URINE NEGATIVE (NEGATIVE); LEUKOCYTE ESTERASE,URINE NEGATIVE (NEGATIVE); NITRITE,URINE NEGATIVE (NEGATIVE); PROTEIN,URINE NEGATIVE (NEGATIVE); URINE SPECIFIC GRAVITY 1.004; UROBILINOGEN,URINE NEGATIVE mg/dL (<2.0)
[2020-03-13] MEDS ORDERED: GLUCAGON,HUMAN RECOMB 1 MG INJ IV ONE (01:30)
[2020-03-13] MEDS ORDERED: ONDANSETRON HCL INJ/PF 4 MG/2 ML SDV IV ONE (02:30)
[2020-03-13] MEDS ORDERED: MELATONIN 5 MG TABLET PO PRN (03:20)
[2020-03-13] MEDS ORDERED: CHLORPROMAZINE HCL INJ 25 MG/1 ML AMPULE IV PRN (03:20)
[2020-03-13] MEDS ORDERED: DIAZEPAM INJ 10 MG/2 ML DISP.SYRIN IV PRN (03:20)
[2020-03-13] MEDS ORDERED: LEVALBUTEROL HCL NEB 0.63 MG/3 ML AMPUL NEB PRN (03:20)
[2020-03-13] MEDS ORDERED: MORPHINE SULFATE 10 MG/ML INJ IV PRN ×4 (03:20→03:47)
[2020-03-13] MEDS ORDERED: PROMETHAZINE HCL INJ 25 MG/1 ML VIAL IV PRN (03:20)
[2020-03-13] MEDS ORDERED: MAGNESIUM HYDROXIDE SUSP 30 ML UDCUP PO PRN (03:20)
[2020-03-13] MEDS ORDERED: GUAIFENESIN SYRP 200 MG/10 ML UDC PO PRN (03:20)
[2020-03-13] MEDS ORDERED: MAG HYDROX/AL HYDROX/SIMETH SUSP 30 ML UDCUP PO PRN (03:20)
[2020-03-13] MEDS ORDERED: ACETAMINOPHEN 325 MG TABLET PO PRN (03:20)
[2020-03-13] MEDS ORDERED: HYDRALAZINE HCL INJ/PF 20 MG/1 ML SDV IV PRN (03:20)
[2020-03-13] MEDS ORDERED: NICOTINE 21 MG/24 HR PATCH.TD24 TD PRN (03:20)
[2020-03-13] MEDS ORDERED: RINGERS SOLUTION,LACTATED 1,000 ML IV PRN (03:24)
[2020-03-13] MEDS: DIAZEPAM 5 MG TABLET PO SCH ×2 (05:09→08:10)
[2020-03-13 06:38] LABS: HEMATOCRIT 40.2 % (37.9-51.0); MEAN CORPUSCULAR HEMOGLOBIN 37.2 pg (27.0-33.4); MEAN CORPUSCULAR HGB CONC 34.7 g/dL (32.0-36.0); MEAN CORPUSCULAR VOLUME 107 fl (80-97); RED BLOOD COUNT 3.75 10^6/uL (4.35-5.55); RED CELL DISTRIBUTION WIDTH 14.5 % (11.5-14.0); WHITE BLOOD COUNT 4.2 10^3/uL (4.0-10.5)
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
[2020-03-13 06:58] LABS: ANION GAP 12 (5-19); BLOOD UREA NITROGEN 11 mg/dL (7-20); CALCIUM 8.7 mg/dL (8.4-10.2); CARBON DIOXIDE 19 mmol/L (22-30); CHLORIDE 99 mmol/L (98-107); GLUCOSE 77 mg/dL (75-110); POTASSIUM 3.4 mmol/L (3.6-5.0)
[2020-03-13 07:00] LABS: PLATELET COUNT 42 10^3/uL (150-450)
[2020-03-13] MEDS ORDERED: LORAZEPAM INJ 2 MG/1 ML VIAL IV PRN ×3 (08:05)
[2020-03-13] MEDS ORDERED: HYDROCODONE/ACETAMINOPHEN 5-325 MG TABLET PO PRN (08:08)
[2020-03-13] MEDS ORDERED: POTASSIUM CHLORIDE 10 MEQ TABLET.ER PO ONE (08:30)
[2020-03-13] MEDS: DOCUSATE SODIUM 100 MG CAPSULE PO SCH ×2 (09:33→17:01)
[2020-03-13] MEDS: FAMOTIDINE 20 MG TABLET PO SCH ×2 (09:33→21:59)
[2020-03-13] MEDS ORDERED: NORMAL SALINE 1000 ML 1,000 ML IV PRN (10:04)
[2020-03-13] MEDS ORDERED: NORMAL SALINE 1000 ML 500 ML IV ONE (10:04)
--- NOTE | 2020-03-13 10:07 | EKG REPORT ---
SEVERITY:- ABNORMAL ECG - SINUS BRADYCARDIA INFERIOR INFARCT, OLD : Confirmed by: Otilio Irvin MD 13-Mar-2020 10:07:26
[2020-03-13 14:07] LABS: ANION GAP 9 (5-19); BLOOD UREA NITROGEN 10 mg/dL (7-20); CALCIUM 8.7 mg/dL (8.4-10.2); CARBON DIOXIDE 22 mmol/L (22-30); CHLORIDE 100 mmol/L (98-107); GLUCOSE 97 mg/dL (75-110); POTASSIUM 4.2 mmol/L (3.6-5.0)
--- NOTE | 2020-03-13 14:39 | PDOC PROGRESS REPORT ---
Subjective Progress Note for:: 03/13/20 Subjective:: The patient was seen on morning rounds. He was found resting in bed, comfortably, eating his breakfast. He is A&O x4. He reports continued bilateral hip discomfort. His primary complaint today is lack of sleep overnight. He denies fever, chest pain, palpitations, dyspnea, orthopnea, cough, abdominal pain, nausea vomiting diarrhea. We discussed potential disposition. Patient adamantly declines SNF placement for short-term rehab. He is agreeable to home health nursing and physical therapy. He tells me that he fully intends to resume his typical alcohol intake upon discharge; claims to drink 3 Vodka-Cokes daily (will not quantify the amount of vodka in each). He is offered assistance in inpatient and/or outpatient alcohol rehab services; he declines these as well. He has no other questions or concerns today. Reason For Visit: FALL,ACUTE ALCOHOL INTOXICATION,ALCOHOL DEPENDENCE Physical Exam Vital Signs: Temp Pulse Resp BP Pulse Ox 97.8 F 48 L 20 129/78 H 97 03/13/20 11:28 03/13/20 11:28 03/13/20 11:28 03/13/20 11:28 03/13/20 11:28 Intake & Output 03/12/20 03/13/20 03/14/20 06:59 06:59 06:59 Intake Total 750 Balance 750 Weight 52.2 kg General appearance: PRESENT: no acute distress, disheveled, thin, well-developed Head exam: PRESENT: atraumatic, normocephalic Eye exam: PRESENT: conjunctiva pink, EOMI, PERRLA. ABSENT: scleral icterus Mouth exam: PRESENT: moist, tongue midline Teeth exam: PRESENT: poor dentation Respiratory exam: PRESENT: clear to auscultation krystal, symmetrical, unlabored. ABSENT: rales, rhonchi, wheezes Cardiovascular exam: PRESENT: RRR. ABSENT: diastolic murmur, rubs, systolic murmur Extremities exam: PRESENT: full ROM. ABSENT: calf tenderness, clubbing, pedal edema Musculoskeletal exam: PRESENT: ambulatory - ~100' w/ FWW Neurological exam: PRESENT: alert, awake, oriented to person, oriented to place, oriented to time, oriented to situation, CN II-XII grossly intact. ABSENT: motor sensory deficit Psychiatric exam: PRESENT: appropriate affect, normal mood. ABSENT: homicidal ideation, suicidal ideation Skin exam: PRESENT: dry, intact, warm. ABSENT: cyanosis, rash Results Laboratory Results: 03/13/20 05:59 03/13/20 13:40 03/12/20 03/12/20 03/12/20 20:30 20:30 20:30 WBC 4.3 RBC 3.90 L Hgb 14.7 Hct 41.5 MCV 107 H MCH 37.8 H MCHC 35.5 RDW 14.5 H Plt Count 57 L Seg Neutrophils % 29.1 L Sodium 128.4 L Potassium 3.1 L Chloride 92 L Carbon Dioxide 23 Anion Gap 13 BUN 12 Creatinine 1.31 H Est GFR ( Amer) > 60 Glucose 110 Calcium 9.1 Magnesium 1.5 L Total Bilirubin 0.9 AST 164 H Alkaline Phosphatase 112 Total Protein 7.4 Albumin 4.1 Urine Color Urine Appearance Urine pH Ur Specific [place] Urine Protein Urine Glucose (UA) Urine Ketones Urine Blood Urine Nitrite Ur Leukocyte Esterase Urine WBC (Auto) Urine RBC (Auto) 03/13/20 03/13/20 03/13/20 00:34 05:59 05:59 WBC 4.2 RBC 3.75 L Hgb 14.0 Hct 40.2 MCV 107 H MCH 37.2 H MCHC 34.7 RDW 14.5 H Plt Count 42 L Seg Neutrophils % Sodium 129.8 L Potassium 3.4 L Chloride 99 Carbon Dioxide 19 L Anion Gap 12 BUN 11 Creatinine 1.10 Est GFR ( Amer) > 60 Glucose 77 Calcium 8.7 Magnesium 2.2 Total Bilirubin AST Alkaline Phosphatase Total Protein Albumin Urine Color YELLOW Urine Appearance CLEAR Urine pH 6.0 Ur Specific [place] 1.004 Urine Protein NEGATIVE Urine Glucose (UA) NEGATIVE Urine Ketones NEGATIVE Urine Blood SMALL H Urine Nitrite NEGATIVE Ur Leukocyte Esterase NEGATIVE Urine WBC (Auto) 1 Urine RBC (Auto) 0 03/13/20 13:40 WBC RBC Hgb Hct MCV MCH MCHC RDW Plt Count Seg Neutrophils % Sodium 130.5 L Potassium 4.2 Chloride 100 Carbon Dioxide 22 Anion Gap 9 BUN 10 Creatinine 1.22 Est GFR ( Amer) > 60 Glucose 97 Calcium 8.7 Magnesium Total Bilirubin AST Alkaline Phosphatase Total Protein Albumin Urine Color Urine Appearance Urine pH Ur Specific [place] Urine Protein Urine Glucose (UA) Urine Ketones Urine Blood Urine Nitrite Ur Leukocyte Esterase Urine WBC (Auto) Urine RBC (Auto) 03/12/20 03/12/20 20:30 20:30 Creatine Kinase 72 Troponin I 0.033 Impressions: Femur X-Ray 03/12/20 20:24 IMPRESSION: No acute fracture or dislocation. copyright 2010 [employer]- All Rights Reserved Pelvis X-Ray 03/12/20 20:24 IMPRESSION: No acute fracture or dislocation. copyright 2010 [employer]- All Rights Reserved Assessment and Plan - Diagnosis (1) Hyponatremia Is this a current diagnosis for this admission?: Yes Plan: Trending up. Na 128.4-> 129.8-> 130.5 Continue gentle IVF Follow up chemistry. (2) Hypokalemia Is this a current diagnosis for this admission?: Yes Plan: Replete. Follow up chemistry (3) Alcohol use disorder, severe, dependence Is this a current diagnosis for this admission?: Yes Plan: Serum ETOH 276 Cessation encouraged. Patient declines rehab services. Monitor for withdrawal; CIWA with sliding scale Ativan. Daily multivitamin, thiamine, folic acid supplementation. Fall, seizure precautions. (4) Hypertension Qualifiers: Hypertension type: essential hypertension Qualified Code(s): I10 - Essential (primary) hypertension Is this a current diagnosis for this admission?: Yes Plan: Resume low-dose Losartan. Cardiac diet. (5) COPD (chronic obstructive pulmonary disease) Qualifiers: COPD type: unspecified COPD Qualified Code(s): J44.9 - Chronic obstructive pulmonary disease, unspecified Is this a current diagnosis for this admission?: Yes Plan: Stable and without exacerbation. As needed nebulizer treatments Encouraged pulmonary toilet. (6) Hyperlipidemia Qualifiers: Hyperlipidemia type: unspecified Qualified Code(s): E78.5 - Hyperlipidemia, unspecified Is this a current diagnosis for this admission?: Yes Plan: Cardiac diet. (7) Systolic and diastolic CHF, chronic Is this a current diagnosis for this admission?: Yes Plan: Stable and without exacerbation at this time Continue home medication regimen Cardiac diet. Daily weights. (8) Hip pain Is this a current diagnosis for this admission?: Yes Plan: Bilateral hip pain. Xray imagining is negative; no indications for CT. Ambulated ~100 feet today. Analgesics as needed. Avoid sedating medications r/t alcohol use/abuse. - Time Time Spent with patient: 25-34 minutes Medications reviewed and adjusted accordingly: Yes Anticipated discharge: Home Within: within 24 hours
[2020-03-13] MEDS: HEPARIN SOD (PORCINE) 5,000 UNIT/ML 1 ML VIAL SUBCUT SCH (17:57)
[2020-03-14 06:40] LABS: HEMATOCRIT 32.9 % (37.9-51.0); MEAN CORPUSCULAR HEMOGLOBIN 37.7 pg (27.0-33.4); MEAN CORPUSCULAR HGB CONC 34.9 g/dL (32.0-36.0); MEAN CORPUSCULAR VOLUME 108 fl (80-97); RED BLOOD COUNT 3.04 10^6/uL (4.35-5.55); RED CELL DISTRIBUTION WIDTH 14.5 % (11.5-14.0)
[2020-03-14 07:05] LABS: ANION GAP 5 (5-19); BLOOD UREA NITROGEN 12 mg/dL (7-20); CALCIUM 8.5 mg/dL (8.4-10.2); CARBON DIOXIDE 21 mmol/L (22-30); CHLORIDE 106 mmol/L (98-107); GLUCOSE 72 mg/dL (75-110); POTASSIUM 4.7 mmol/L (3.6-5.0)
[2020-03-14 07:36] LABS: HEMOGLOBIN 11.5 g/dL (13.5-17.0); WHITE BLOOD COUNT 1.9 10^3/uL (4.0-10.5)
[2020-03-14 07:37] LABS: PLATELET COUNT 24 10^3/uL (150-450)
[2020-03-14] MEDS: FAMOTIDINE 20 MG TABLET PO SCH (09:10)
[2020-03-14] MEDS ORDERED: LOPERAMIDE HCL 2 MG CAPSULE PO PRN (09:15)
[2020-03-14] MEDS: DOCUSATE SODIUM 100 MG CAPSULE PO SCH (09:28)
[2020-03-14] MEDS ORDERED: LOSARTAN POTASSIUM 25 MG TABLET PO SCH (10:00)
[2020-03-14] MEDS ORDERED: THIAMINE HCL 100 MG TABLET PO SCH (10:00)
[2020-03-14] MEDS ORDERED: MULTIVITAMIN TABLET PO SCH (10:00)
[2020-03-14] MEDS ORDERED: FOLIC ACID 1 MG TABLET PO SCH (10:00)
[2020-03-14 12:19] VITALS: BP 157/86
--- NOTE | 2020-03-14 13:43 | Left Against Medical Advice ---
Against Medical Advice Admission Date/Time: 03/13/20 03:10 Primary Care Provider: CHENTE TURNER Date of Patient Emigration: 03/14/20 - Diagnosis: (1) Hyponatremia Is this a current diagnosis for this admission?: Yes (2) Hypokalemia Is this a current diagnosis for this admission?: Yes (3) Alcohol use disorder, severe, dependence Is this a current diagnosis for this admission?: Yes (4) Hypertension Is this a current diagnosis for this admission?: Yes (5) COPD (chronic obstructive pulmonary disease) Is this a current diagnosis for this admission?: Yes (6) Hyperlipidemia Is this a current diagnosis for this admission?: Yes (7) Systolic and diastolic CHF, chronic Is this a current diagnosis for this admission?: Yes (8) Hip pain Is this a current diagnosis for this admission?: Yes - Summary: Summary: Please see Admission and Progress Notes as well. JOHN WALKER is a 64 M, who LEFT AGAINST MEDICAL ADVICE. The Patient was admitted on 03/13/20 03:10. The patient was admitted to the medical floor on continuous cardiac telemetry. He was provided IV fluids with a liberalized sodium diet. Electrolytes were monitored and replaced as indicated. Serum EtOH on admission was 276. I had a discussion with the patient regarding his alcohol intake. He was unreceptive to my concern about the amount of drinking he undergoes. He minimized his alcohol intake to 3 small drinks daily. He adamantly declined interest in inpatient or outpatient rehabilitation; stated that he intended to return home and resume his normal alcohol consumption. He was placed on a daily multivitamin, thiamine, and folic acid supplement. The patient's hip pain was evaluated with x-ray imaging; no acute findings. Physical therapy was consulted; he was able to ambulate approximately 100 feet with front wheel walker and minimal assistance. The patient was noted to have pancytopenia with, most notably, worsening thrombocytopenia (PLT 57-> 24). Patient was informed that I intended to obtain hematology consultation. Unfortunately, the patient elected to leave AGAINST MEDICAL ADVICE prior to Dr. Santizo being able to evaluate the patient and make further recommendations. Most likely, the pancytopenia is likely related to his chronic alcohol use, and as mentioned above, the patient is unreceptive to alcohol cessation at this time.
[2020-03-14 15:51] LABS: PATH REVIEW PATHOLOGIST REVIEWED
== END 2020-03-14 12:38 | disposition left against medical advice (07) | DRG 894 ==
LOC: ER 20:16 → OBSVTOIN 03-13 03:10 → UNDOADMOB 03-13 03:10 → EH 03-13 03:10 → 4S 03-13 04:45
PROVIDERS: ADMIT Emergency Medicine; ATTEND Registered Nurse
PROC: HZ2ZZZZ Detoxification Services for Substance Abuse Treatment (ICD-10-PCS; principal; 2020-03-13)
DX: F10.221 Alcohol dependence with intoxication delirium (principal); E87.1 Hypo-osmolality and hyponatremia; I50.42 Chronic combined systolic (congestive) and diastolic (congestive) heart failure; D61.818 Other pancytopenia; W19.XXXA Unspecified fall, initial encounter; Y90.8 Blood alcohol level of 240 mg/100 ml or more; E87.6 Hypokalemia; J44.9 Chronic obstructive pulmonary disease, unspecified; E78.5 Hyperlipidemia, unspecified; I11.0 Hypertensive heart disease with heart failure; W05.0XXA Fall from non-moving wheelchair, initial encounter; I25.10 Atherosclerotic heart disease of native coronary artery without angina pectoris; E03.9 Hypothyroidism, unspecified; R00.1 Bradycardia, unspecified; M25.552 Pain in left hip; M25.551 Pain in right hip; E78.00 Pure hypercholesterolemia, unspecified; F17.210 Nicotine dependence, cigarettes, uncomplicated; E83.42 Hypomagnesemia; Z60.2 Problems related to living alone; Z86.718 Personal history of other venous thrombosis and embolism; Z79.899 Other long term (current) drug therapy; Z88.6 Allergy status to analgesic agent; Z88.0 Allergy status to penicillin; Z91.81 History of falling
CPT/HCPCS: 36415; 72170; 73552; 80048; 80053; 80307; 81001; 82550; 83735; 84484; 85025; 85027; 93005; 93010; 96365; 96366; 96367; 96375; 99285; J1610; J2405; J3475; J3480; J3490; J7030; J7040

== ENCOUNTER 2020-03-15 21:21 | Inpatient (IN) | payer MEDICARE, MEDICAID ==
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
--- NOTE | 2020-03-15 22:49 | RADIOLOGY REPORT (SQ) ---
EXAM DESCRIPTION: XR PELVIS 1-2 VIEWS COMPLETED DATE/TME: 03/15/2020 22:15 CLINICAL HISTORY: 64 years, Male, fall at home, pain walking, h/o surgery COMPARISON: 03/12/2020 pelvis NUMBER OF VIEWS: 1 TECHNIQUE: AP pelvis LIMITATIONS: None. FINDINGS: Osteopenia. Stable postsurgical change. Lucency with surrounding sclerosis associated with the intertrochanteric region of the right femur may reflect incompletely healed fracture. An acute fracture is not excluded, correlate with site of pain. New from the prior exam are lucencies associated with the right and left inferior pubic rami, worrisome for nondisplaced fractures. Consider follow-up with CT. IMPRESSION: Lucencies overlying the right and left inferior pubic rami may in part reflect artifact from overlying soft tissues, however nondisplaced acute fracture deformities are not excluded. Possible incompletely healed versus acute nondisplaced fracture of the intertrochanteric region of the right femur. Consider follow-up with CT. copyright 2010 [employer]- All Rights Reserved
--- NOTE | 2020-03-15 22:56 | RADIOLOGY REPORT (SQ) ---
EXAM DESCRIPTION: XR FEMUR 2 VIEWS COMPLETED DATE/TME: 03/15/2020 22:15 CLINICAL HISTORY: 64 years, Male, fall at home, pain walking, h/o surgery COMPARISON: 03/12/2020 AP pelvis. 03/13/2019 right hip. NUMBER OF VIEWS: 4 TECHNIQUE: 4 views of the right femur LIMITATIONS: None. FINDINGS: Intramedullary sara with gamma nail. Osteopenia. Fixation screw of the proximal femoral diaphysis. Lucency extends through the intertrochanteric region of the femur. This could reflect acute fracture versus incompletely healed fracture. No other evidence for acute fracture or dislocation. IMPRESSION: Questionable acute versus incompletely healed fracture of the intertrochanteric region. copyright 2010 [employer]- All Rights Reserved
--- NOTE | 2020-03-15 22:57 | RADIOLOGY REPORT (SQ) ---
EXAM DESCRIPTION: XR LUMBAR SPINE ANTEROPOSTERIOR, LATERAL, AND OBLIQUES COMPLETED DATE/TME: 03/15/2020 22:15 CLINICAL HISTORY: 64 years, Male, fall at home, pain walking, h/o surgery COMPARISON: None. NUMBER OF VIEWS: 5 TECHNIQUE: 5 view lumbar spine LIMITATIONS: None. FINDINGS: 5 lumbar type vertebral bodies. Osteopenia. Vertebral body height and alignment is preserved. Minor endplate degenerative changes with facet arthropathy throughout the lumbar spine. Vascular calcifications. Minor degenerative changes of sacroiliac joints. IMPRESSION: No radiographic evidence for acute abnormality of the lumbar spine copyright 2010 [employer]- All Rights Reserved
[2020-03-15 23:15] LABS: ABSOLUTE EOSINOPHILS # (AUTO) 0.1 10^3/uL (0.0-0.6); ABSOLUTE LYMPHOCYTES (AUTO) 0.9 10^3/uL (0.5-4.7); ABSOLUTE MONOCYTES (AUTO) 0.3 10^3/uL (0.1-1.4); ABSOLUTE NEUT (AUTO) 1.2 10^3/uL (1.7-8.2); BASOPHILS % (AUTO) 1.5 % (0-2); EOSINOPHILS % (AUTO) 3.7 % (0-6); HEMATOCRIT 35.5 % (37.9-51.0); HEMOGLOBIN 12.4 g/dL (13.5-17.0); LYMPHOCYTES % (AUTO) 35.8 % (13-45); MEAN CORPUSCULAR HEMOGLOBIN 37.5 pg (27.0-33.4); MEAN CORPUSCULAR HGB CONC 34.9 g/dL (32.0-36.0); MEAN CORPUSCULAR VOLUME 108 fl (80-97); MONOCYTES % (AUTO) 11.4 % (3-13); RED CELL DISTRIBUTION WIDTH 14.5 % (11.5-14.0); SEGMENTED NEUTROPHILS % (AUTO) 47.6 % (42-78); TOTAL CELLS COUNTED % (AUTO) 100 %; WHITE BLOOD COUNT 2.6 10^3/uL (4.0-10.5)
[2020-03-15 23:22] LABS: ALBUMIN 3.6 g/dL (3.5-5.0); ALKALINE PHOSPHATASE 97 U/L (38-126); ANION GAP 7 (5-19); ASPARTATE AMINO TRANSFERASE 118 U/L (17-59); BILIRUBIN,DIRECT 0.2 mg/dL (0.0-0.4); BILIRUBIN,TOTAL 0.7 mg/dL (0.2-1.3); BLOOD UREA NITROGEN 12 mg/dL (7-20); CALCIUM 8.9 mg/dL (8.4-10.2); CARBON DIOXIDE 26 mmol/L (22-30); CHLORIDE 102 mmol/L (98-107); GLUCOSE 85 mg/dL (75-110); POTASSIUM 3.6 mmol/L (3.6-5.0); TOTAL PROTEIN 6.7 g/dL (6.3-8.2)
[2020-03-15 23:35] LABS: PLATELET COUNT 37 10^3/uL (150-450)
--- NOTE | 2020-03-16 00:27 | RADIOLOGY REPORT (SQ) ---
EXAM DESCRIPTION: CT PELVIS WITHOUT IV CONTRAST COMPLETED DATE/TME: 03/15/2020 23:25 CLINICAL HISTORY: 64 years, Male, fall, possible incomplete fx hip and pelvis COMPARISON: Plain films 03/15/2020 TECHNIQUE: 502 Images stored on PACS. All CT scanners at this facility use dose modulation, iterative reconstruction, and/or weight based dosing when appropriate to reduce radiation dose to as low as reasonably achievable (ALARA). [facility]: Dose Right [facility]: CareDose [facility]: Dose Right [facility]: Teradose 4D [facility]: [employer] LIMITATIONS: None. FINDINGS: Limited evaluation of intrapelvic structures shows sigmoid diverticulosis. No free fluid in the pelvis. Postsurgical changes with bilateral hip arthroplasties. Comminuted fracture deformity of the right inferior pubic ramus, with extension of fracture lines to the right ischium posteriorly. There is also a nondisplaced fracture of the left inferior pubic ramus. Fracture line through the intertrochanteric region of the right femur with minimal areas of sclerosis likely reflects incompletely healed fracture. However, there is a superimposed acute fracture associated with the proximal right femur with small avulsion off of the lesser trochanter. Acute fracture also extends to the greater trochanter, with lucency along the lateral margin of the intramedullary sara at this site. IMPRESSION: Comminuted fracture deformity of the right inferior pubic ramus with extension of fracture lines to the right ischium posteriorly. Acute fracture of the right femur, with avulsed fragment of the lesser trochanter and fracture line also extending to the greater trochanter. Incompletely healed fracture lines are also present. Nondisplaced fracture of the left inferior pubic ramus. TECHNICAL DOCUMENTATION: Quality ID # 436: Final reports with documentation of one or more dose reduction techniques (e.g., Automated exposure control, adjustment of the mA and/or kV according to patient size, use of iterative reconstruction technique) copyright 2011 [employer]- All Rights Reserved
[2020-03-16] MEDS ORDERED: OXYCODONE-ACETAMINOPHEN 5-325 MG TABLET PO ONE (01:21)
[2020-03-16] MEDS ORDERED: PROMETHAZINE HCL INJ 25 MG/1 ML VIAL IV PRN (01:43)
[2020-03-16] MEDS ORDERED: DEXTROSE 5%-LACTATED RINGERS 1,000 ML IV PRN (01:43)
[2020-03-16] MEDS ORDERED: LEVALBUTEROL HCL NEB 0.63 MG/3 ML AMPUL NEB PRN (01:43)
[2020-03-16] MEDS ORDERED: CHLORPROMAZINE HCL INJ 25 MG/1 ML AMPULE IV PRN (01:50)
[2020-03-16] MEDS ORDERED: HYDRALAZINE HCL INJ/PF 20 MG/1 ML SDV IV PRN (01:50)
[2020-03-16] MEDS ORDERED: ACETAMINOPHEN 650 MG SUPP.RECT PR PRN (01:50)
[2020-03-16] MEDS ORDERED: NICOTINE 21 MG/24 HR PATCH.TD24 TD PRN (01:50)
[2020-03-16] MEDS ORDERED: MORPHINE SULFATE 10 MG/ML INJ IV PRN ×4 (01:50→02:01)
[2020-03-16] MEDS ORDERED: NORMAL SALINE 1000 ML 1,000 ML with POTASSIUM CHLORIDE 20 MEQ, MAGNESIUM SULFATE 8 MEQ,... IV ONE ×5 (02:15)
[2020-03-16] MEDS ORDERED: FAMOTIDINE INJ/PF 20 MG/2 ML SDV IV ONE (02:15)
[2020-03-16] MEDS: DIAZEPAM INJ 10 MG/2 ML DISP.SYRIN IV SCH ×4 (02:59→11:10)
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
[2020-03-16 05:46] LABS: HEMATOCRIT 31.8 % (37.9-51.0); HEMOGLOBIN 11.2 g/dL (13.5-17.0); MEAN CORPUSCULAR HGB CONC 35.1 g/dL (32.0-36.0); MEAN CORPUSCULAR VOLUME 108 fl (80-97); RED BLOOD COUNT 2.95 10^6/uL (4.35-5.55); RED CELL DISTRIBUTION WIDTH 14.7 % (11.5-14.0); WHITE BLOOD COUNT 2.1 10^3/uL (4.0-10.5)
[2020-03-16 05:54] LABS: ANION GAP 10 (5-19); BLOOD UREA NITROGEN 12 mg/dL (7-20); CALCIUM 8.3 mg/dL (8.4-10.2); CARBON DIOXIDE 21 mmol/L (22-30); CHLORIDE 104 mmol/L (98-107); GLUCOSE 117 mg/dL (75-110); POTASSIUM 3.5 mmol/L (3.6-5.0)
[2020-03-16] MEDS ORDERED: HEPARIN SOD (PORCINE) 5,000 UNIT/ML 1 ML VIAL SUBCUT SCH (06:00)
[2020-03-16 06:16] LABS: PLATELET COUNT 29 10^3/uL (150-450)
[2020-03-16] MEDS: LEVALBUTEROL HCL NEB 1.25 MG/3 ML AMPUL NEB SCH ×2 (08:58→16:12)
[2020-03-16] MEDS: NORMAL SALINE 1000 ML 1,000 ML with POTASSIUM CHLORIDE 20 MEQ, MAGNESIUM SULFATE 8 MEQ,... IV SCH ×5 (08:58)
[2020-03-16] MEDS ORDERED: NORMAL SALINE 250 ML IV PRN ×2 (09:25)
[2020-03-16 09:44] LABS: INTERNATIONAL RATION (INR) 1.19; PROTHROMBIN TIME 15.2 SEC (11.4-15.4)
[2020-03-16] MEDS ORDERED: FAMOTIDINE INJ/PF 20 MG/2 ML SDV IV SCH ×2 (10:00)
[2020-03-16] MEDS ORDERED: OXYCODONE-ACETAMINOPHEN 5-325 MG TABLET PO PRN (11:04)
[2020-03-16] MEDS: DIAZEPAM 5 MG TABLET PO SCH ×3 (12:33→23:54)
[2020-03-16] MEDS: OXYCODONE-ACETAMINOPHEN 5-325 MG TABLET PO PRN ×2 (12:33→18:25)
--- NOTE | 2020-03-16 15:06 | Progress Note ---
Provider Note Provider Note: Patient is a 64-year-old male with past medical history of CHF, CAD, DVT, hypertension, hyperlipidemia, COPD (not on home O2), hypothyroidism, alcohol and tobacco dependency with continuous use who was admitted early this morning by the oracle database manager for fracture of the left and right inferior pubic ramus and closed intertrochanteric fracture of the right femur related to mechanical fall at home. Notably, patient had a serum alcohol level of 183. It is also worth noting that the patient left AGAINST MEDICAL ADVICE 2 days ago after admission for generalized weakness, multiple falls, and hip pain with alcohol level 276. Overnight events, Vital signs, H&P, laboratory results, imaging reports, and orders reviewed. Agree the plan of care as established by the previous provider. In addition: --I spoke with Dr. Santizo regarding the patient's pancytopenia. He recommended nutritional supplements/multivitamins as his pancytopenia is related to his alcohol dependence and chronic malnutrition. He did advise that surgery would likely desire his platelet count to be >50. --Spoke with Dr. Sandra who related that he did not anticipate operative management for the patient's fractures. --Therefore, patient was placed on a cardiac diet. Medications adjusted to p.o. --Ordered 1 unit PLT r/t PLT count of 29 in patient with multiple pelvic fractures. --Follow up CBC scheduled this afternoon to monitor for ongoing blood loss. --Discharge planning is consulted for SNF placement. --Continue Valium 5 mg po q6h scheduled. Monitor for alcohol withdrawal with CIWA; notify provider of score >10 so that sliding scale ativan/valium can be instituted.
[2020-03-16 15:51] LABS: HEMATOCRIT 31.8 % (37.9-51.0); HEMOGLOBIN 10.9 g/dL (13.5-17.0); MEAN CORPUSCULAR HEMOGLOBIN 37.2 pg (27.0-33.4); MEAN CORPUSCULAR HGB CONC 34.3 g/dL (32.0-36.0); MEAN CORPUSCULAR VOLUME 109 fl (80-97); RED BLOOD COUNT 2.93 10^6/uL (4.35-5.55); RED CELL DISTRIBUTION WIDTH 14.5 % (11.5-14.0); WHITE BLOOD COUNT 2.4 10^3/uL (4.0-10.5)
[2020-03-16 16:23] LABS: PLATELET COUNT 63 10^3/uL (150-450)
[2020-03-16] MEDS ORDERED: NORMAL SALINE 1000 ML 1,000 ML with POTASSIUM CHLORIDE 20 MEQ, MAGNESIUM SULFATE 8 MEQ,... IV SCH ×5 (18:00)
[2020-03-16] MEDS: DEXTROSE 5%-LACTATED RINGERS 1,000 ML IV PRN (18:29)
[2020-03-16] MEDS: FAMOTIDINE 20 MG TABLET PO SCH (21:28)
[2020-03-17] MEDS: LEVALBUTEROL HCL NEB 1.25 MG/3 ML AMPUL NEB SCH ×3 (00:15→16:21)
[2020-03-17] MEDS: DEXTROSE 5%-LACTATED RINGERS 1,000 ML IV PRN ×3 (01:43→23:02)
[2020-03-17] MEDS: DIAZEPAM 5 MG TABLET PO SCH ×4 (05:04→23:02)
[2020-03-17 05:29] LABS: HEMATOCRIT 28.3 % (37.9-51.0); HEMOGLOBIN 9.9 g/dL (13.5-17.0); MEAN CORPUSCULAR HEMOGLOBIN 37.9 pg (27.0-33.4); MEAN CORPUSCULAR HGB CONC 35.2 g/dL (32.0-36.0); MEAN CORPUSCULAR VOLUME 108 fl (80-97); RED BLOOD COUNT 2.62 10^6/uL (4.35-5.55); RED CELL DISTRIBUTION WIDTH 14.6 % (11.5-14.0)
[2020-03-17 05:49] LABS: BLOOD UREA NITROGEN 12 mg/dL (7-20); CALCIUM 8.2 mg/dL (8.4-10.2); CARBON DIOXIDE 24 mmol/L (22-30); GLUCOSE 132 mg/dL (75-110); POTASSIUM 3.7 mmol/L (3.6-5.0)
[2020-03-17 05:54] LABS: CHLORIDE 106 mmol/L (98-107)
[2020-03-17 05:59] LABS: PLATELET COUNT 46 10^3/uL (150-450)
[2020-03-17 06:00] LABS: ANION GAP 4 (5-19)
[2020-03-17] MEDS: NORMAL SALINE 1000 ML 1,000 ML with POTASSIUM CHLORIDE 20 MEQ, MAGNESIUM SULFATE 8 MEQ,... IV SCH ×5 (08:16)
[2020-03-17] MEDS: OXYCODONE-ACETAMINOPHEN 5-325 MG TABLET PO PRN ×2 (08:20→14:08)
[2020-03-17] MEDS: FAMOTIDINE 20 MG TABLET PO SCH ×2 (10:00→20:59)
[2020-03-17] MEDS ORDERED: LOSARTAN POTASSIUM 25 MG TABLET PO SCH (10:00)
[2020-03-17] MEDS: LOSARTAN POTASSIUM 50 MG TABLET PO SCH (10:01)
--- NOTE | 2020-03-17 11:28 | CDI QUERY ---
<JESUS ALBERTO CHAMPION - Last Filed: 03/17/20 11:26> CDI Query CDI Review: Dear Provider: To better reflect your patients severity of illness, morbidity, and resource utilization Please specify and document in the Progress Notes and Discharge Summary if you are monitoring / treating / evaluating any of the following conditions: Query Clinical indicators Please indicate the degree of chronic malnutrition if known: Cachexia / BMI 15.8 Severe Malnutrition / BMI 15.8 Moderate Malnutrition / BMI 15.8 Mild Malnutrition / BMI 15.8 Unable to determine Other Per ED Notes: notes that he left the hospital AMA today. Does not really know why he was admitted. Review of records shows that he was admitted for alcohol abuse, hyponatremia and pancytopenia. Per Provider Note: pancytopenia is related to his alcohol dependence and chronic malnutrition Ht. 5 ft 10 in Wt 53.7 kg (118 lbs) BMI 15.8 The terms probable, suspected, likely, possible or still to be ruled out may be used if you are unable to determine the exact nature of a condition. Thank you for your consideration, Clinical Documentation Physician Advisor JOHN Sim RN <PRICE RUIZ - Last Filed: 03/21/20 13:44> CDI Query Agree with Query: Yes - Malnutrition noted in D/C Summary
--- NOTE | 2020-03-17 16:43 | PDOC PROGRESS REPORT ---
Subjective Progress Note for:: 03/17/20 Subjective:: No adverse events overnight. He was able to walk with physical therapy once they help him get up. No signs of any alcohol withdrawal. Reason For Visit: ACUTE CLOSED INTERTROCHANTERIC FRACTURE OF THE Physical Exam Vital Signs: Temp Pulse Resp BP Pulse Ox 97.6 F 69 16 160/94 H 100 03/17/20 16:00 03/17/20 16:00 03/17/20 16:00 03/17/20 16:00 03/17/20 16:00 Intake & Output 03/16/20 03/17/20 03/18/20 06:59 06:59 06:59 Intake Total 3954 1480 Output Total 200 555 300 Balance -200 3399 1180 Weight 50 kg 53.7 kg General appearance: PRESENT: no acute distress, cooperative, disheveled, thin Respiratory exam: PRESENT: clear to auscultation krystal, symmetrical, unlabored. ABSENT: accessory muscle use, chest wall tenderness, crackles, prolonged expiratory phas, rhonchi, tachypnea, wheezes Cardiovascular exam: PRESENT: RRR, +S1, +S2 Pulses: PRESENT: normal carotid pulses Vascular exam: PRESENT: normal capillary refill GI/Abdominal exam: PRESENT: normal bowel sounds, soft. ABSENT: distended, guarding, rebound, tenderness Extremities exam: ABSENT: clubbing, pedal edema Musculoskeletal exam: PRESENT: normal inspection. ABSENT: deformity Neurological exam: PRESENT: awake - Drowsy but arousable, oriented to person, oriented to place, oriented to situation Psychiatric exam: PRESENT: flat affect Skin exam: PRESENT: dry, warm Results Laboratory Results: 03/17/20 05:03 03/17/20 05:03 03/17/20 03/17/20 05:03 05:03 WBC 2.0 L RBC 2.62 L Hgb 9.9 L Hct 28.3 L MCV 108 H MCH 37.9 H MCHC 35.2 RDW 14.6 H Plt Count 46 L Sodium 134.3 L Potassium 3.7 Chloride 106 Carbon Dioxide 24 Anion Gap 4 L BUN 12 Creatinine 1.08 Est GFR ( Amer) > 60 Glucose 132 H Calcium 8.2 L Magnesium 1.7 Impressions: Femur X-Ray 03/15/20 22:15 IMPRESSION: Questionable acute versus incompletely healed fracture of the intertrochanteric region. copyright 2011 [employer]- All Rights Reserved Lumbar Spine X-Ray 03/15/20 22:15 IMPRESSION: No radiographic evidence for acute abnormality of the lumbar spine copyright 2010 [employer]- All Rights Reserved Pelvis X-Ray 03/15/20 22:15 IMPRESSION: Lucencies overlying the right and left inferior pubic rami may in part reflect artifact from overlying soft tissues, however nondisplaced acute fracture deformities are not excluded. Possible incompletely healed versus acute nondisplaced fracture of the intertrochanteric region of the right femur. Consider follow-up with CT. copyright 2010 [employer]- All Rights Reserved Pelvis CT 03/15/20 23:25 IMPRESSION: Comminuted fracture deformity of the right inferior pubic ramus with extension of fracture lines to the right ischium posteriorly. Acute fracture of the right femur, with avulsed fragment of the lesser trochanter and fracture line also extending to the greater trochanter. Incompletely healed fracture lines are also present. Nondisplaced fracture of the left inferior pubic ramus. TECHNICAL DOCUMENTATION: Quality ID # 436: Final reports with documentation of one or more dose reduction techniques (e.g., Automated exposure control, adjustment of the mA and/or kV according to patient size, use of iterative reconstruction technique) copyright 2010 [employer]- All Rights Reserved Assessment and Plan - Diagnosis (1) Moderate malnutrition Is this a current diagnosis for this admission?: Yes Plan: BMI of 17. Encouraging patient to eat. (2) Closed intertrochanteric fracture of right femur Qualifiers: Encounter type: initial encounter Fracture alignment: nondisplaced Qualified Code(s): S72.144A - Nondisplaced intertrochanteric fracture of right femur, initial encounter for closed fracture Is this a current diagnosis for this admission?: Yes Plan: No surgical intervention indicated per orthopedics as indicated in a previous provider's note. Weightbearing as tolerated supervised activity. He has a bed at [facility] and will go there tomorrow for group home facility rehab. (3) Fracture of left inferior pubic ramus Qualifiers: Encounter type: initial encounter Fracture type: closed Qualified Code(s): S32.592A - Other specified fracture of left pubis, initial encounter for closed fracture Is this a current diagnosis for this admission?: Yes Plan: Weightbearing as tolerated per orthopedics (4) Fracture of right inferior pubic ramus Qualifiers: Encounter type: initial encounter Fracture type: closed Qualified Code(s): S32.591A - Other specified fracture of right pubis, initial encounter for closed fracture Is this a current diagnosis for this admission?: Yes Plan: Weightbearing as tolerated per orthopedics (5) Fracture of right ischium Qualifiers: Encounter type: initial encounter Fracture type: closed Fracture morpho logy: unspecified fracture morphology Fracture alignment: nondisplaced Qualified Code(s): S32.601A - Unspecified fracture of right ischium, initial encounter for closed fracture Is this a current diagnosis for this admission?: Yes Plan: Weightbearing as tolerated per orthopedics (6) Acute alcohol intoxication delirium with moderate or severe use disorder Is this a current diagnosis for this admission?: Yes Plan: Resolved. On precautions in case of withdrawal. (7) COPD (chronic obstructive pulmonary disease) Qualifiers: COPD type: unspecified COPD Qualified Code(s): J44.9 - Chronic obstructive pulmonary disease, unspecified Is this a current diagnosis for this admission?: Yes Plan: Not acutely exacerbated (8) Tobacco use disorder, severe, dependence Is this a current diagnosis for this admission?: Yes Plan: Have counseled cessation - Plan Summary Summary: Patient will be admitted to the medical floor where he will receive routine supportive and symptomatic cares. He will be kept n.p.o. until a decision is reached by Dr. Sandra as to whether he will go to surgery later this morning or if surgery will be delayed for further evaluation and treatment. Dr. Sandra will be consulted for orthopedic evaluation and care. Patient will receive IV fluids utilizing D5 LR at 167 mL/h. He will use morphine sulfate 2 to 4 mg IV every 2 hours as needed for pain control. He will receive Valium 5 mg IV every 4 hours to prevent alcohol withdrawal symptoms. He will receive Thorazine 25 mg IV every 8 hours as needed for delirium tremens symptoms. CBCs, metabolic profiles, magnesium levels and additional laboratory and/or radiographic evaluations will be obtained as appropriate. Smoking cessation is again advised and counseled briefly at the bedside. A nicotine replacement patch is available for the patient's use, if desired. - Time Time Spent with patient: 15-24 minutes
[2020-03-17] MEDS ORDERED: FONDAPARINUX SODIUM INJ 2.5 MG/0.5 ML DISP.SYRIN SUBCUT SCH (18:00)
[2020-03-18] MEDS: LEVALBUTEROL HCL NEB 1.25 MG/3 ML AMPUL NEB SCH ×3 (00:26→16:08)
[2020-03-18] MEDS: OXYCODONE-ACETAMINOPHEN 5-325 MG TABLET PO PRN ×2 (02:50→07:30)
[2020-03-18] MEDS: DIAZEPAM 5 MG TABLET PO SCH ×2 (05:15→13:38)
[2020-03-18 05:33] LABS: BLOOD UREA NITROGEN 11 mg/dL (7-20); CALCIUM 8.2 mg/dL (8.4-10.2); CARBON DIOXIDE 25 mmol/L (22-30); CHLORIDE 104 mmol/L (98-107); GLUCOSE 113 mg/dL (75-110); POTASSIUM 4.2 mmol/L (3.6-5.0)
[2020-03-18 05:40] LABS: HEMATOCRIT 30.1 % (37.9-51.0); HEMOGLOBIN 10.4 g/dL (13.5-17.0); MEAN CORPUSCULAR HEMOGLOBIN 37.7 pg (27.0-33.4); MEAN CORPUSCULAR HGB CONC 34.6 g/dL (32.0-36.0); MEAN CORPUSCULAR VOLUME 109 fl (80-97); RED BLOOD COUNT 2.76 10^6/uL (4.35-5.55); RED CELL DISTRIBUTION WIDTH 14.9 % (11.5-14.0)
[2020-03-18 05:43] LABS: ANION GAP 4 (5-19)
[2020-03-18 06:18] LABS: PLATELET COUNT 43 10^3/uL (150-450); WHITE BLOOD COUNT 1.7 10^3/uL (4.0-10.5)
[2020-03-18] MEDS: DEXTROSE 5%-LACTATED RINGERS 1,000 ML IV PRN (06:54)
[2020-03-18] MEDS: NORMAL SALINE 1000 ML 1,000 ML with POTASSIUM CHLORIDE 20 MEQ, MAGNESIUM SULFATE 8 MEQ,... IV SCH ×5 (07:30)
[2020-03-18] MEDS: LOSARTAN POTASSIUM 50 MG TABLET PO SCH (09:17)
[2020-03-18] MEDS: FAMOTIDINE 20 MG TABLET PO SCH (09:17)
[2020-03-18 12:05] VITALS: BP 110/86
--- NOTE | 2020-03-18 14:39 | PDOC DISCHARGE SUMMARY ---
Impression - Admit/DC Date/PCP Admission Date/Primary Care Provider: 03/16/20 01:34 CHENTE TURNER Discharge Date: 03/18/20 - Discharge Diagnosis (1) Moderate malnutrition Is this a current diagnosis for this admission?: Yes (2) Closed intertrochanteric fracture of right femur Is this a current diagnosis for this admission?: Yes (3) Fracture of left inferior pubic ramus Is this a current diagnosis for this admission?: Yes (4) Fracture of right inferior pubic ramus Is this a current diagnosis for this admission?: Yes (5) Fracture of right ischium Is this a current diagnosis for this admission?: Yes (6) Acute alcohol intoxication delirium with moderate or severe use disorder Is this a current diagnosis for this admission?: Yes (7) COPD (chronic obstructive pulmonary disease) Is this a current diagnosis for this admission?: Yes (8) Tobacco use disorder, severe, dependence Is this a current diagnosis for this admission?: Yes - Assessment Summary: Patient will be admitted to the medical floor where he will receive routine supportive and symptomatic cares. He will be kept n.p.o. until a decision is reached by Dr. Sandra as to whether he will go to surgery later this morning or if surgery will be delayed for further evaluation and treatment. Dr. Sandra w ill be consulted for orthopedic evaluation and care. Patient will receive IV fluids utilizing D5 LR at 167 mL/h. He will use morphine sulfate 2 to 4 mg IV every 2 hours as needed for pain control. He will receive Valium 5 mg IV every 4 hours to prevent alcohol withdrawal symptoms. He will receive Thorazine 25 mg IV every 8 hours as needed for delirium tremens symptoms. CBCs, metabolic profiles, magnesium levels and additional laboratory and/or radiographic evaluations will be obtained as appropriate. Smoking cessation is again advised and counseled briefly at the bedside. A nicotine replacement patch is available for the patient's use, if desired. - Additional Information Resuscitation Status: Full Code Discharge Diet: Cardiac Discharge Activity: Supervised Activity Referrals: [facility] [Outside] QUINN TORRES AGNP [Primary Care Provider] - 03/21/20 9:00 am Prescriptions: Oxycodone HCl/Acetaminophen [Percocet 5-325 mg Tablet] 1 tab PO Q4HP PRN #10 tablet PRN Reason: Home Medications: Atenolol 100 mg PO DAILY 03/16/20 Losartan Potassium [Cozaar 25 mg Tablet] 100 mg PO DAILY 03/16/20 Oxycodone HCl/Acetaminophen [Percocet 5-325 mg Tablet] 1 tab PO Q4HP PRN #10 tablet 03/18/20 History of Present Illiness History of Present Illness: JOHN WALKER is a 64 year old male who presented to the emergency room on the evening of 03/15/2020 with acute right hip pain. He admits leaving the hospital AMA on 03/15/2020 and going home where while transferring from his wheelchair to the toilet he fell and acutely injured his right hip with immediate onset pain of his right hip, radiating down his right leg and throughout his pelvis after the fall. The pain is sharp constant and severe, worsened by any movement or weightbearing. He denies other associated or accompanying signs and symptoms. He admits prior similar episodes with bilateral hip fractures less than a year ago. He has not identified any additional aggravating or ameliorating factors for his hip pain. In the emergency room he is found to have an intertrochanteric fracture of the right femur and bilateral pubic ramus fractures with a right ischium fracture also noted. Patient was subsequently admitted for further evaluation and treatment at the request of Dr. Sandra who will be consulted to see the patient for orthopedic care. Hospital Course Hospital Course: The admitting provider spoke to Dr. Sandra who said that none of the patient's injuries would be requiring surgical intervention. Patient was weightbearing as tolerated under supervision. Pain was well controlled. His comorbid conditions were managed with his home medications and not exacerbated during this hospitalization. He does have a history of alcoholism and was given small doses of Valium during his stay and he has not had any evidence of withdrawal symptoms. He was seen and evaluated by physical therapy who recommended care home facility placement for rehab. A bed was obtained he was transferred in stable condition. Physical Exam Vital Signs: Temp Pulse Resp BP Pulse Ox 98.0 F 88 16 110/86 H 94 03/18/20 11:11 03/18/20 11:11 03/18/20 11:11 03/18/20 11:11 03/18/20 08:16 Intake & Output 03/17/20 03/18/20 03/19/20 06:59 06:59 06:59 Intake Total 3954 9453 1143 Output Total 037 8260 400 Balance 3399 3406 743 Weight 53.7 kg 53.5 kg General appearance: PRESENT: no acute distress, cooperative, disheveled, thin Respiratory exam: PRESENT: clear to auscultation krystal, symmetrical, unlabored. ABSENT: accessory muscle use, chest wall tenderness, crackles, prolonged expiratory phas, rhonchi, tachypnea, wheezes Cardiovascular exam: PRESENT: RRR, +S1, +S2 Pulses: PRESENT: normal carotid pulses Vascular exam: PRESENT: normal capillary refill GI/Abdominal exam: PRESENT: normal bowel sounds, soft. ABSENT: distended, guarding, rebound, tenderness Extremities exam: ABSENT: clubbing, pedal edema Musculoskeletal exam: PRESENT: normal inspection. ABSENT: deformity Neurological exam: PRESENT: awake - Drowsy but arousable, oriented to person, oriented to place, oriented to situation Psychiatric exam: PRESENT: flat affect Skin exam: PRESENT: dry, warm Results Laboratory Results: WBC 1.7 10^3/uL (4.0-10.5) L 03/18/20 05:13 RBC 2.76 10^6/uL (4.35-5.55) L 03/18/20 05:13 Hgb 10.4 g/dL (13.5-17.0) L 03/18/20 05:13 Hct 30.1 % (37.9-51.0) L 03/18/20 05:13 MCV 109 fl (80-97) H 03/18/20 05:13 MCH 37.7 pg (27.0-33.4) H 03/18/20 05:13 MCHC 34.6 g/dL (32.0-36.0) 03/18/20 05:13 RDW 14.9 % (11.5-14.0) H 03/18/20 05:13 Plt Count 43 10^3/uL (150-450) L 03/18/20 05:13 Lymph % (Auto) 35.8 % (13-45) 03/15/20 23:00 [place] % (Auto) 11.4 % (3-13) 03/15/20 23:00 Eos % (Auto) 3.7 % (0-6) 03/15/20 23:00 Baso % (Auto) 1.5 % (0-2) 03/15/20 23:00 Absolute Neuts (auto) 1.2 10^3/uL (1.7-8.2) L 03/15/20 23:00 Absolute Lymphs (auto) 0.9 10^3/uL (0.5-4.7) 03/15/20 23:00 Absolute Monos (auto) 0.3 10^3/uL (0.1-1.4) 03/15/20 23:00 Absolute Eos (auto) 0.1 10^3/uL (0.0-0.6) 03/15/20 23:00 Absolute Basos (auto) 0.0 10^3/uL (0.0-0.2) 03/15/20 23:00 Seg Neutrophils % 47.6 % (42-78) 03/15/20 23:00 PT 15.2 SEC (11.4-15.4) 03/16/20 09:24 INR 1.19 03/16/20 09:24 Sodium 133.0 mmol/L (137-145) L 03/18/20 05:13 Potassium 4.2 mmol/L (3.6-5.0) 03/18/20 05:13 Chloride 104 mmol/L (98-107) 03/18/20 05:13 Carbon Dioxide 25 mmol/L (22-30) 03/18/20 05:13 Anion Gap 4 (5-19) L 03/18/20 05:13 BUN 11 mg/dL (7-20) 03/18/20 05:13 Creatinine 1.10 mg/dL (0.52-1.25) 03/18/20 05:13 Est GFR ( Amer) > 60 (>60) 03/18/20 05:13 Est GFR (MDRD) Non-Af > 60 (>60) 03/18/20 05:13 Glucose 113 mg/dL (75-110) H 03/18/20 05:13 Calcium 8.2 mg/dL (8.4-10.2) L 03/18/20 05:13 Magnesium 1.7 mg/dL (1.6-2.3) 03/18/20 05:13 Total Bilirubin 0.7 mg/dL (0.2-1.3) 03/15/20 23:00 Direct Bilirubin 0.2 mg/dL (0.0-0.4) 03/15/20 23:00 Neonat Total Bilirubin Not Reportable 03/15/20 23:00 Neonat Direct Bilirubin Not Reportable 03/15/20 23:00 Neonat Indirect Bili Not Reportable 03/15/20 23:00 AST 118 U/L (17-59) H 03/15/20 23:00 ALT 49 U/L (<50) 03/15/20 23:00 Alkaline Phosphatase 97 U/L (38-126) 03/15/20 23:00 Total Protein 6.7 g/dL (6.3-8.2) 03/15/20 23:00 Albumin 3.6 g/dL (3.5-5.0) 03/15/20 23:00 Serum Alcohol 183 mg/dL (NONE DETECTED) 03/15/20 23:00 Blood Type A POSITIVE 03/16/20 11:15 Impressions: Femur X-Ray 03/15/20 22:15 IMPRESSION: Questionable acute versus incompletely healed fracture of the intertrochanteric region. copyright 2011 [employer]- All Rights Reserved Lumbar Spine X-Ray 03/15/20 22:15 IMPRESSION: No radiographic evidence for acute abnormality of the lumbar spine copyright 2010 [employer]- All Rights Reserved Pelvis X-Ray 03/15/20 22:15 IMPRESSION: Lucencies overlying the right and left inferior pubic rami may in part reflect artifact from overlying soft tissues, however nondisplaced acute fracture deformities are not excluded. Possible incompletely healed versus acute nondisplaced fracture of the intertrochanteric region of the right femur. Consider follow-up with CT. copyright 2010 [employer]- All Rights Reserved Pelvis CT 03/15/20 23:25 IMPRESSION: Comminuted fracture deformity of the right inferior pubic ramus with extension of fracture lines to the right ischium posteriorly. Acute fracture of the right femur, with avulsed fragment of the lesser trochanter and fracture line also extending to the greater trochanter. Incompletely healed fracture lines are also present. Nondisplaced fracture of the left inferior pubic ramus. TECHNICAL DOCUMENTATION: Quality ID # 436: Final reports with documentation of one or more dose reduction techniques (e.g., Automated exposure control, adjustment of the mA and/or kV according to patient size, use of iterative reconstruction technique) copyright 2011 [employer]- All Rights Reserved Plan Time Spent: Greater than 30 Minutes Stroke Is this a Stroke Patient?: No Acute Heart Failure - Is this a Heart Failure Patient?: No
== END 2020-03-18 16:28 | DRG 964 ==
LOC: ER 21:21 → EH 03-16 01:34 → 4W 03-16 02:46
PROVIDERS: ADMIT Emergency Medicine; ATTEND Family Medicine
PROC: 30233R1 Transfusion of Nonautologous Platelets into Peripheral Vein, Percutaneous Approach (ICD-10-PCS; principal; 2020-03-16)
DX: S72.141A Displaced intertrochanteric fracture of right femur, initial encounter for closed fracture (principal); S32.502A Unspecified fracture of left pubis, initial encounter for closed fracture; D61.818 Other pancytopenia; S32.501A Unspecified fracture of right pubis, initial encounter for closed fracture; S32.601A Unspecified fracture of right ischium, initial encounter for closed fracture; E87.1 Hypo-osmolality and hyponatremia; I50.42 Chronic combined systolic (congestive) and diastolic (congestive) heart failure; F10.221 Alcohol dependence with intoxication delirium; F10.239 Alcohol dependence with withdrawal, unspecified; E44.0 Moderate protein-calorie malnutrition; Z68.1 Body mass index [BMI] 19.9 or less, adult; I25.10 Atherosclerotic heart disease of native coronary artery without angina pectoris; I11.0 Hypertensive heart disease with heart failure; E78.00 Pure hypercholesterolemia, unspecified; J44.9 Chronic obstructive pulmonary disease, unspecified; E03.9 Hypothyroidism, unspecified; F17.210 Nicotine dependence, cigarettes, uncomplicated; W05.0XXA Fall from non-moving wheelchair, initial encounter; Y90.6 Blood alcohol level of 120-199 mg/100 ml; Y93.89 Activity, other specified; Y92.012 Bathroom of single-family (private) house as the place of occurrence of the external cause; Z60.2 Problems related to living alone; Z86.718 Personal history of other venous thrombosis and embolism; Z71.6 Tobacco abuse counseling
CPT/HCPCS: 36415; 36430; 72110; 72170; 72192; 80048; 80053; 80307; 83735; 85025; 85027; 85610; 86900; 86901; 94640; 99285; J0360; J1652; J3360; J3411; J3475; J3480; J3490; J7030; J7121; P9035; S0028